=== PATIENT | female | born 1940 | race Caucasian/White ===

== ENCOUNTER 2019-12-19 14:39 | Outpatient (REF) | payer MEDICARE, SELFPAY ==
[2019-12-19 16:32] LABS: Free T4 (Free Thyroxine) 0.99 ng/dL (0.71-1.85)
== END 2019-12-19 14:40 | disposition home or self-care (01) ==
LOC: HO.LAB 14:39
PROVIDERS: PCP Internal Medicine; Visit Provider Internal Medicine Endocrinology, Diabetes & Metabolism
DX: E89.0 Postprocedural hypothyroidism (principal)
CPT/HCPCS: 84439; 84443

== ENCOUNTER → 2019-12-24 11:39 | Outpatient (BNVA) | payer MEDICARE, SELFPAY | PROVIDERS: PCP Internal Medicine; Referring Provider Internal Medicine; Visit Provider Internal Medicine Endocrinology, Diabetes & Metabolism | DX: Z13.89 Encounter for screening for other disorder (principal) | CPT/HCPCS: 99212 ==

== ENCOUNTER 2020-01-24 10:20 | Outpatient (REF) | payer MEDICARE, SELFPAY ==
[2020-01-24 10:47] LABS: MANUAL DIFF FLAG NO
[2020-01-24 11:07] LABS: Basophils Absolute Auto 0.1 X10*3/uL (0.0-0.2); Basophils Percent Auto 1.2 % (0-2); Eosinophils Absolute Auto 0.1 X10*3/uL (0.0-0.4); Eosinophils Percent Auto 2.1 % (0-4); Hematocrit 38.3 % (37-47); Hemoglobin 12.1 g/dl (12.0-16.0); Imm Gran Abs Auto 0.01 X10*3/uL (0.00-0.03); Imm Gran Pct Auto 0.2 % (0.0-0.4); Lymphocytes Absolute Auto 1.6 X10*3/uL (1.2-4.9); Lymphocytes Percent Auto 30.1 % (20-40); Mean Corpuscular HGB Conc 31.6 g/dl (31.0-35.0); Mean Corpuscular Hemoglobin 30.5 pg (27.0-33.0); Mean Corpuscular Volume 96.5 fL (80-98); Mean Platelet Volume 10.4 fL (9.4-12.3); Monocytes Absolute Auto 0.5 X10*3/uL (0.1-1.2); Neutrophils Absolute Auto 2.9 X10*3/uL (2.0-8.3); Neutrophils Percent Auto 56.4 % (45-73); Platelet Count 215 X10*3/uL (160-400); Red Blood Count 3.97 X10*6/uL (4.20-5.50); Red Cell Distribution Width 13.4 % (11.0-16.0); White Blood Count 5.2 X10*3/uL (4.8-10.8)
[2020-01-24 11:27] LABS: Alanine Aminotransferase 14 U/L (0-31); Albumin Level 3.7 g/dL (3.5-5.0); Alkaline Phosphatase 81 U/L (39-117); Anion Gap 12 (12-20); Aspartate Amino Transferase 19 U/L (5-31); Bilirubin Direct 0.2 mg/dL (0.0-0.5); Bilirubin Total 0.2 mg/dL (0.0-1.0); Blood Urea Nitrogen 19 mg/dL (9-16); Calcium 8.7 mg/dL (8.4-10.2); Carbon Dioxide 26 mmol/L (22-29); Chloride 108 mmol/L (96-108); Estimated Glomerular Filt Rate 53; Glucose Random 80 mg/dL (60-115); Iron 71 mcg/dL (30-160); Percent Iron Saturation 29 % (15-50); Potassium 4.2 mmol/l (3.3-5.1); Sodium 142 mmol/L (135-145); Total Iron Binding Capacity 249 mcg/dL (228-428); Total Protein 7.2 g/dL (6.5-8.0); Unsaturated Iron Binding 178 ug/dL
== END 2020-01-24 10:21 | disposition home or self-care (01) ==
LOC: HO.LAB 10:20
PROVIDERS: PCP Internal Medicine; Visit Provider Dermatology
DX: L29.8 Other pruritus (principal); L43.8 Other lichen planus
CPT/HCPCS: 36415; 80048; 80076; 83540; 85025

== ENCOUNTER 2020-01-24 10:45 | Outpatient (REF) | payer MEDICARE, SELFPAY | END 2020-01-24 10:46 | disposition home or self-care (01) | LOC: HO.LAB 10:45 | PROVIDERS: Visit Provider Internal Medicine | DX: Z20.828 Contact with and (suspected) exposure to other viral communicable diseases (principal) | CPT/HCPCS: C9803; U0003 ==

== ENCOUNTER 2020-01-26 08:37 | Outpatient (REF) | payer MEDICARE, SELFPAY ==
--- NOTE | 2020-01-26 | MM_ITS ---
EXAMINATION: MM SCREENING DIGITAL BREAST TOMOSYNTHESIS, BILATERAL CLINICAL INFORMATION: Screening. Asymptomatic. The lifetime risk of breast cancer based on the Tyrer-Cuzick Model is 2%. COMPARISON: Mammography: 01/25/2019, 06/24/2017, 06/22/2016, 04/23/2015 TECHNIQUE: Digital breast tomosynthesis is performed in both the craniocaudal and mediolateral oblique views along with computer-aided detection (CAD). Synthesized 2D images are generated from the tomosynthesis. FINDINGS: The breasts are heterogeneously dense, which may obscure small masses (ACR BI-RADS breast composition Category c). There are no significant masses, abnormal calcifications, or other abnormalities. Parenchymal pattern is similar to prior studies. No developing density. The axilla and skin contours are unremarkable. No significant changes. MM/MM tomosynthesis screening BI IMPRESSION: No mammographic evidence of malignancy. ASSESSMENT: BI-RADS 1: Negative RECOMMENDATION: Routine annual mammography screening. This patient's information was entered into a reminder system with a target due date for their next mammogram.
== END 2020-01-26 08:38 | disposition home or self-care (01) ==
LOC: HO.MAMMO 08:37
PROVIDERS: PCP Internal Medicine; Visit Provider Internal Medicine
DX: Z12.31 Encounter for screening mammogram for malignant neoplasm of breast (principal)
CPT/HCPCS: 77063; 77067

== ENCOUNTER 2020-03-27 10:00 | Outpatient (REF) | payer MEDICARE, SELFPAY | END 2020-03-27 10:01 | disposition home or self-care (01) | LOC: HO.LAB 10:00 | PROVIDERS: Visit Provider Internal Medicine | DX: Z20.822 Contact with and (suspected) exposure to COVID-19 (principal) | CPT/HCPCS: 36415; C9803; U0003; U0005 ==

== ENCOUNTER 2020-05-08 14:07 | Outpatient (REF) | payer MEDICARE, SELFPAY | END 2020-05-08 14:08 | disposition home or self-care (01) | LOC: HO.LNP 14:07 | PROVIDERS: Visit Provider Hospitalist | DX: R30.0 Dysuria (principal) | CPT/HCPCS: 87086 ==

== ENCOUNTER 2020-12-09 10:47 | Outpatient (REF) | payer MEDICARE, SELFPAY ==
[2020-12-09 11:05] LABS: MANUAL DIFF FLAG NO
[2020-12-09 11:15] LABS: Basophils Absolute Auto 0.1 X10*3/uL (0.0-0.2); Eosinophils Absolute Auto 0.1 X10*3/uL (0.0-0.4); Eosinophils Percent Auto 2.3 % (0-4); Hematocrit 37.7 % (37-47); Hemoglobin 12.2 g/dl (12.0-16.0); Imm Gran Abs Auto 0.01 X10*3/uL (0.00-0.03); Imm Gran Pct Auto 0.2 % (0.0-0.4); Lymphocytes Absolute Auto 1.6 X10*3/uL (1.2-4.9); Lymphocytes Percent Auto 25.5 % (20-40); Mean Corpuscular HGB Conc 32.4 g/dl (31.0-35.0); Mean Corpuscular Hemoglobin 31.7 pg (27.0-33.0); Mean Corpuscular Volume 97.9 fL (80-98); Mean Platelet Volume 10.1 fL (9.4-12.3); Monocytes Absolute Auto 0.5 X10*3/uL (0.1-1.2); Neutrophils Absolute Auto 3.9 X10*3/uL (2.0-8.3); Platelet Count 233 X10*3/uL (160-400); Red Blood Count 3.85 X10*6/uL (4.20-5.50); Red Cell Distribution Width 13.3 % (11.0-16.0); White Blood Count 6.1 X10*3/uL (4.8-10.8)
[2020-12-09 12:02] LABS: Alanine Aminotransferase 9 U/L (0-31); Albumin Level 3.9 g/dL (3.5-5.0); Alkaline Phosphatase 85 U/L (39-117); Anion Gap 11 (12-20); Aspartate Amino Transferase 15 U/L (5-31); Bilirubin Total 0.5 mg/dL (0.0-1.0); Blood Urea Nitrogen 14 mg/dL (9-16); Calcium 9.1 mg/dL (8.4-10.2); Carbon Dioxide 25 mmol/L (22-29); Chloride 110 mmol/L (96-108); Cholesterol 226 mg/dL; Estimated Glomerular Filt Rate 50; Glucose Random 91 mg/dL (60-115); HDL Cholesterol 50 mg/dL; LDL Cholesterol Calculated 153 mg/dl; Potassium 4.3 mmol/L (3.3-5.1); Sodium 142 mmol/L (135-145); Total Protein 7.3 g/dL (6.5-8.0); Triglycerides 118 mg/dL
[2020-12-09 12:20] LABS: Folate 7.3 ng/mL (> or = 4.0); Vitamin B12 290 pg/mL (200-900)
[2020-12-09 12:25] LABS: Thyroid Stimulating Hormone 1.91 uIU/mL (0.32-4.0); Vitamin D 25-OH Total 30.8 ng/mL (>30)
== END 2020-12-09 10:48 | disposition home or self-care (01) ==
LOC: HO.LAB 10:47
PROVIDERS: PCP Internal Medicine; Visit Provider Internal Medicine
DX: E78.00 Pure hypercholesterolemia, unspecified (principal)
CPT/HCPCS: 36415; 80053; 80061; 82306; 82607; 82746; 84439; 84443; 85025

== ENCOUNTER 2021-01-15 10:23 | Outpatient (REF) | payer MEDICARE, SELFPAY ==
--- NOTE | 2021-01-15 16:46 | MHC.AU.ANR ---
Adult Audiological Evaluation Date of Visit: 01/15/21 Reason for Appointment: Audiological evaluation due to concern for tinnitus. Ms. Basurto reports that her tinnitus first began about 3-4 years ago and she describes it as a constant buzzing. She finds it most bothersome at night when it's quiet. She feels she overall hears well and doesn't have any significant concerns for her hearing sensitivity. Does patient feel they have a hearing loss?: Unsure Has hearing been tested previously?: Yes Previous Hearing Test Results: Reports that she had a hearing evaluation at [facility] in 2011, at which time she was told she had mild high-frequency hearing loss. Hearing Handicap Inventory: HHIE SCORE: 2 Based on HHIE score, patient has: No perceived hearing handicap Ear History: Family History of Hearing Loss?: Yes: Father, 2 brothers, sister Ear Infections in Childhood: Both Ears History of Ear Wax Buildup: Both Ears Bothersome Tinnitus/Ringing/Noises in Ears: Both Ears Medical History: Medical History: Autoimmune Disease, Measles, Mumps Medical History (Other): Lichen planus, Cataract surgery 2017, left thyroid removed (benign) in 2019, several broken bones Allergies: No known allergies Medication List: Levothyroxine 50 mcg daily, Vitamin D3 1000 mg daily Otoscopy: Right Ear: Unremarkable Left Ear: Unremarkable Hearing Evaluation: Transducer(s) Used: Insert Earphones, Bone Conduction Method: Conventional Audiometry Stimuli Used: Pure Tones Right Ear: Description of Hearing: Normal hearing from 250-2000 Hz, sloping to a mild to moderate sensorineural hearing loss from 7649-9940 Hz. Left Ear: Description of Hearing: Normal hearing from 250-1000 Hz, sloping to a mild to moderate sensorineural hearing loss from 1090-1790 Hz. Speech Recognition Threshold (SRT): Method Used: Monitored Live Voice Stimuli Used: Spondee Words Right Ear: 15 dBHL Left Ear: 15 dBHL Word Discrimination: Method: Recorded Lists Word Lists Used: NU-6 Right Ear: 100% at 55 dBHL Left Ear: 96% a 55 dBHL Recommendations: Audiological re-evaluation in one year. Amplification is not warranted at this time. Discussed tinnitus management strategies and exacerbating factors of tinnitus (stress, nicotine, caffeine, salt intake, etc.). Diagnosis: Primary Diagnosis: H90.3 Bilateral Sensorineural Hearing Loss Secondary Diagnosis: H93.13 Tinnitus, Bilateral Services Performed: Services Performed: Comprehensive Audiological Evaluation (CPT 29713) Signature: Provider: Silverio Vela, CCC-A
== END 2021-01-15 10:24 | disposition home or self-care (01) ==
LOC: HO.SH 10:23
PROVIDERS: Visit Provider Internal Medicine
DX: H90.3 Sensorineural hearing loss, bilateral (principal); H93.13 Tinnitus, bilateral
CPT/HCPCS: 92557

== ENCOUNTER 2021-01-29 16:09 | Outpatient (REF) | payer MEDICARE, SELFPAY ==
--- NOTE | ~2021-01-29 | MM_ITS ---
EXAMINATION: MM SCREENING DIGITAL BREAST TOMOSYNTHESIS, BILATERAL CLINICAL INFORMATION: Screening. Asymptomatic. The lifetime risk of breast cancer based on the Tyrer-Cuzick Model is 2.4%. COMPARISON: Mammography: January 26, 2020 and studies dating back to April 23, 2015 TECHNIQUE: Digital breast tomosynthesis is performed in both the craniocaudal and mediolateral oblique views along with computer-aided detection (CAD). Synthesized 2D images are generated from the tomosynthesis. FINDINGS: The breasts are heterogeneously dense, which may obscure small masses (ACR BI-RADS breast composition Category c). There are no significant masses, abnormal calcifications, or other abnormalities. MM/MM tomosynthesis screening BI IMPRESSION: There are no significant changes from prior study. ASSESSMENT: BI-RADS 1: Negative RECOMMENDATION: Routine annual mammography screening. This patient's information was entered into a reminder system with a target due date for their next mammogram.
== END 2021-01-29 16:10 | disposition home or self-care (01) ==
LOC: HO.MAMMO 16:09
PROVIDERS: Visit Provider Internal Medicine
DX: Z12.31 Encounter for screening mammogram for malignant neoplasm of breast (principal)
CPT/HCPCS: 77063; 77067

== ENCOUNTER 2021-02-02 10:10 | Outpatient (REF) | payer MEDICARE, SELFPAY ==
[2021-02-02 12:03] LABS: COVID-19 Test Negative (Negative); IDNOW Serial# 16C4AD1C
== END 2021-02-02 10:11 | disposition home or self-care (01) ==
LOC: HO.LAB 10:10
PROVIDERS: Visit Provider Internal Medicine
DX: Z20.822 Contact with and (suspected) exposure to COVID-19 (principal)
CPT/HCPCS: 36415; 87635; C9803

== ENCOUNTER 2021-03-19 10:58 | Outpatient (REF) | payer MEDICARE, SELFPAY ==
--- NOTE | ~2021-03-19 | MM_ITS ---
EXAMINATION: BONE DENSITOMETRY CLINICAL INDICATION: Other specified disorders of bone density and structure. COMPARISON: Previous BD dated 12/26/2018 and baseline BD dated 11/30/2010. TECHNIQUE: Using a [employer] DXA System (software version: 13.1) manufactured by [employer] dual-energy x-ray absorptiometry was performed of the lumbar spine and left hip. The images are of good technical quality. Summary results are attached. FINDINGS: AP SPINE L1-L4 (excluding L2 and L3): The data of L1-L4 has been changed to exclude the L2 and L3 vertebral bodies, because degenerative changes at these levels may cause overestimation of lumbar spine density. Current: BMD 0.931 g/cm2, Z-score -0.9, T-score -2.0, osteopenia, 3.6% increase from previous, 4.7% decrease from baseline (<5% change is not significant). Prior: BMD 0.899 g/cm2. Baseline: BMD 0.977 g/cm2. LEFT FEMUR, NECK: Current: BMD 0.781 g/cm2, Z-score -0.3, T-score -1.8, osteopenia. Prior: BMD 0.776 g/cm2. Baseline: BMD 0.845 g/cm2. LEFT FEMUR, TOTAL: Current: BMD 0.841 g/cm2, Z-score 0.0, T-score -1.3, osteopenia, 2.3% decrease from previous, 5.5% decrease from baseline (<5% change is not significant). Prior: BMD 0.861 g/cm2. Baseline: BMD 0.890 g/cm2. IDENTIFIED RISK FACTORS: Osteoporosis, secondary osteoporosis, history of fracture (adult), menopause. HISTORY OF FRACTURE: Wrist. Finger. MEDICATIONS: Vitamin D. MM/XR DEXA axial skeleton IMPRESSION: 1. DIAGNOSIS: Osteopenia based on the lowest T-score value of -2.0 in the lumbar spine applying World Health Organization criteria. 2. 10-YEAR FRACTURE RISK PREDICTION, FRAX: Major osteoporotic fracture (clinical spine, forearm, hip or shoulder) 19.8%. Hip fracture 4.7%. 3. Treatment Recommendations: NOF guidelines recommend consideration for treatment in postmenopausal women and men age 50 and older presenting with the following: -A hip or vertebral (clinical or morphometric) fracture. -T-score less than or equal to -2.5 at the femoral neck or spine after appropriate evaluation to exclude secondary causes. -Low bone mass at the hip or spine and a 10-year fracture probability by FRAX of greater than or equal to 3% for hip fracture or greater than or equal to 20% for major osteoporotic fracture based on the [place] adapted WHO algorithm. 4. Other Recommendations: All treatment decisions require clinical judgment and consideration of individual patient factors, including patient preferences, comorbidities, previous drug use, risk factors not captured in the FRAX model (e.g. frailty, falls, vitamin D deficiency, increased bone turnover, interval significant decline in bone density) and possible under or overestimation of fracture risk by FRAX. Additional medical evaluation for secondary cause of low bone mineral density may be appropriate. FUTURE SCAN RECOMMENDATION: People with diagnosed cases of osteoporosis or at high risk for fracture should have regular bone mineral density tests. For patients eligible for Medicare, routine testing is allowed once every 2 years. The testing frequency can be increased to one year for patients who have rapidly progressing disease, those who are receiving or discontinuing medical therapy to restore bone mass, or have additional risk factors.
== END 2021-03-19 10:59 | disposition home or self-care (01) ==
LOC: HO.MAMMO 10:58
PROVIDERS: Visit Provider Internal Medicine
DX: Z13.820 Encounter for screening for osteoporosis (principal); M85.80 Other specified disorders of bone density and structure, unspecified site; M81.0 Age-related osteoporosis without current pathological fracture; Z78.0 Asymptomatic menopausal state; Z79.899 Other long term (current) drug therapy
CPT/HCPCS: 77080

== ENCOUNTER 2021-07-07 09:47 | Outpatient (REF) | payer MEDICARE, SELFPAY ==
[2021-07-07 11:17] LABS: Alanine Aminotransferase 19 U/L (0-31); Albumin Level 3.7 g/dL (3.5-5.0); Alkaline Phosphatase 81 U/L (39-117); Anion Gap 11 (12-20); Aspartate Amino Transferase 16 U/L (5-31); Bilirubin Total 0.5 mg/dL (0.0-1.0); Blood Urea Nitrogen 14 mg/dL (9-16); Calcium 9.3 mg/dL (8.4-10.2); Carbon Dioxide 27 mmol/L (22-29); Chloride 106 mmol/L (96-108); Cholesterol 245 mg/dL; Estimated Glomerular Filt Rate 57; Glucose Random 91 mg/dL (60-115); HDL Cholesterol 47 mg/dL; LDL Cholesterol Calculated 165 mg/dl; Potassium 4.7 mmol/L (3.3-5.1); Sodium 139 mmol/L (135-145); Total Protein 7.2 g/dL (6.5-8.0); Triglycerides 166 mg/dL
[2021-07-07 11:26] LABS: Free T4 (Free Thyroxine) 0.91 ng/dL (0.71-1.85); Thyroid Stimulating Hormone 2.42 uIU/mL (0.32-4.0)
== END 2021-07-07 09:48 | disposition home or self-care (01) ==
LOC: HO.LAB 09:47
PROVIDERS: PCP Internal Medicine; Visit Provider Internal Medicine
DX: E78.00 Pure hypercholesterolemia, unspecified (principal); E04.2 Nontoxic multinodular goiter; E89.0 Postprocedural hypothyroidism
CPT/HCPCS: 36415; 80053; 80061; 84439; 84443

== ENCOUNTER → 2021-07-14 07:55 | Outpatient (BNVA) | payer MEDICARE, SELFPAY | PROVIDERS: PCP Internal Medicine; Visit Provider Internal Medicine Endocrinology, Diabetes & Metabolism | DX: E04.2 Nontoxic multinodular goiter (principal); E89.0 Postprocedural hypothyroidism | CPT/HCPCS: 99212 ==

== ENCOUNTER 2021-09-29 11:21 | Outpatient (REF) | payer MEDICARE, SELFPAY ==
--- NOTE | ~2021-09-29 | US_ITS ---
EXAMINATION: US THYROID CLINICAL INFORMATION: Nontoxic multinodular goiter. COMPARISON: Thyroid ultrasound 02/23/2018 and 03/01/2017. Ultrasound-guided thyroid biopsy 09/30/2016. TECHNIQUE: Linear transducer grayscale and color Doppler examination with attention to the region of the thyroid. FINDINGS: SIZE: Measurements of the solitary right lobe and nodules are given in sagittal, anteroposterior and transverse dimensions respectively. Right Thyroid Lobe: 4.6 x 1.4 x 1.8 cm, volume 6.1 mL. Previously 4.7 x 1.7 x 1.5 cm, volume 6.1 mL. Parenchyma: The gland echotexture is homogeneous. Thyroid vascularity is increased. Left Thyroid Lobe: Surgically absent. Isthmus: Surgically absent. Estimated total number of nodules greater than or equal to 1 cm: 2. [employer] nodules are described as follows: 1. Location: Right mid pole. Size: 1.0 x 0.7 x 0.9 cm, volume 0.3 mL. Previously: 1.1 x 0.7 x 0.8 cm, volume 0.3 mL. Nodule characteristics: Composition: Solid/almost completely solid (2). Echogenicity: Hypoechoic (2). Shape: Not taller than wide (0). Margins: Smooth (0). Echogenic Foci: None (0). ACR TI-RADS total points: 4 ACR TI-RADS category: 4 Significant change in size (>/= 20% in 2 dimensions and minimal increase of 2 mm or 50% or greater increase in volume): None Change in features: None Change in ACR TI-RADS risk category: Not applicable 2. Location: Right mid pole/medial. Size: 0.8 x 0.3 x 0.7 cm, volume 0.1 mL. Previously: 0.8 x 0.6 x 0.7 cm, volume 0.2 mL. Nodule characteristics: Composition: Cystic(0). ACR TI-RADS total points: 0 ACR TI-RADS category: 1 Significant change in size (>/= 20% in 2 dimensions and minimal increase of 2 mm or 50% or greater increase in volume): 9 Change in features: None Change in ACR TI-RADS risk category: Not applicable. 3. Location: Right upper/mid pole. Size: 1.6 x 0.5 x 1.0 cm, volume 0.4 mL. Previously: 0.9 x 0.6 x 0.8 cm, volume 0.23 mL. Nodule characteristics: Composition: Mixed cystic and solid (1). Echogenicity: Cannot be determined (1). Shape: Not taller than wide (0). Margins: Ill-defined (0). Echogenic Foci: None (0). ACR TI-RADS total points: 2 ACR TI-RADS category: 2 Significant change in size (>/= 20% in 2 dimensions and minimal increase of 2 mm or 50% or greater increase in volume): None Change in features: None Change in ACR TI-RADS risk category: Not applicable NODES: No lymphadenopathy is seen in the tissue surrounding the thyroid gland. US/US thyroid IMPRESSION: Stable right thyroid lobe and thyroid nodules. No suspicious nodules. Previous left thyroidectomy. ACR TI-RADS RECOMMENDATION REFERENCE: Ultrasound-guided fine-needle aspiration, followup ultrasound, no further follow up. * TR1 (0 point) and TR 2 (2 points): No FNA or follow up * TR3 (3 points): FNA if more than or equal to 2.5 cm in maximum dimension, followup ultrasound in 1, 3 and 5 years if 1.5 to 2.4 cm in maximum dimension. * TR4 (4-6 points): FNA if more than or equal to 1.5 cm in maximum dimension, followup ultrasound in 1, 2, 3 and 5 years if 1 to 1.4 cm in maximum dimension. * TR5 (more than or equal to 7 points): FNA if more than or equal to 1 cm in maximum dimension, followup ultrasound every year for 5 years if 0.5 to 0.9 cm in maximum dimension. * TR3, TR4 or TR5 nodules that are below the size threshold for follow up receive no follow up.
[2021-09-29 12:20] LABS: MANUAL DIFF FLAG NO
[2021-09-29 12:43] LABS: Basophils Absolute Auto 0.1 X10*3/uL (0.0-0.2); Basophils Percent Auto 1.5 % (0-2); Eosinophils Absolute Auto 0.1 X10*3/uL (0.0-0.4); Eosinophils Percent Auto 2.4 % (0-4); Hematocrit 38.8 % (37.0-47.0); Hemoglobin 12.5 g/dl (12.0-16.0); Imm Gran Abs Auto 0.01 X10*3/uL (0.00-0.03); Imm Gran Pct Auto 0.2 % (0.0-0.4); Lymphocytes Absolute Auto 1.6 X10*3/uL (1.2-4.9); Lymphocytes Percent Auto 29.4 % (20-40); Mean Corpuscular HGB Conc 32.2 g/dl (31.0-35.0); Mean Corpuscular Volume 96.3 fL (80.0-98.0); Mean Platelet Volume 10.1 fL (9.4-12.3); Monocytes Absolute Auto 0.5 X10*3/uL (0.1-1.2); Monocytes Percent Auto 9.4 % (2-11); Neutrophils Absolute Auto 3.1 x10*3/uL (2.0-8.3); Neutrophils Percent Auto 57.1 % (45-73); Platelet Count 216 X10*3/uL (160-400); Red Blood Count 4.03 X10*6/uL (4.20-5.50); White Blood Count 5.3 X10*3/uL (4.8-10.8)
[2021-09-29 13:37] LABS: Alanine Aminotransferase 13 U/L (0-31); Albumin Level 3.8 g/dL (3.5-5.0); Alkaline Phosphatase 73 U/L (39-117); Anion Gap 14 (12-20); Aspartate Amino Transferase 18 U/L (5-31); Bilirubin Total 0.4 mg/dL (0.0-1.0); Blood Urea Nitrogen 14 mg/dL (9-16); Calcium 8.8 mg/dL (8.4-10.2); Carbon Dioxide 25 mmol/L (22-29); Chloride 108 mmol/L (96-108); Cholesterol 227 mg/dL; Estimated Glomerular Filt Rate 55; Glucose Random 88 mg/dL (60-115); HDL Cholesterol 49 mg/dL; LDL Cholesterol Calculated 155 mg/dl; Potassium 4.6 mmol/L (3.3-5.1); Sodium 142 mmol/L (135-145); Total Protein 7.2 g/dL (6.5-8.0); Triglycerides 116 mg/dL
[2021-09-29 13:52] LABS: Free T4 (Free Thyroxine) 0.97 ng/dL (0.71-1.85); Thyroid Stimulating Hormone 1.56 uIU/mL (0.32-4.0); Vitamin D 25-OH Total 37.3 ng/mL (>30)
[2021-09-29 14:29] LABS: Folate 6.4 ng/mL (> or = 4.0); Vitamin B12 264 pg/mL (200-900)
== END 2021-09-29 11:22 | disposition home or self-care (01) ==
LOC: HO.US 11:21
PROVIDERS: PCP Internal Medicine; Visit Provider Internal Medicine Endocrinology, Diabetes & Metabolism
DX: E89.0 Postprocedural hypothyroidism (principal); E78.00 Pure hypercholesterolemia, unspecified; E04.2 Nontoxic multinodular goiter; M81.0 Age-related osteoporosis without current pathological fracture
CPT/HCPCS: 36415; 76536; 80053; 80061; 82306; 82607; 82746; 84439; 84443; 85025

== ENCOUNTER 2022-02-01 12:20 | Outpatient (REF) | payer MEDICARE, SELFPAY ==
--- NOTE | ~2022-02-01 | MM_ITS ---
EXAMINATION: MM SCREENING DIGITAL BREAST TOMOSYNTHESIS, BILATERAL CLINICAL INFORMATION: Screening. Asymptomatic. The lifetime risk of breast cancer based on the Tyrer-Cuzick Model is 2%. COMPARISON: Mammography: 01/30/2020, 01/26/2020, 12/26/2018 TECHNIQUE: Digital breast tomosynthesis is performed in both the craniocaudal and mediolateral oblique views along with computer-aided detection (CAD). Synthesized 2D images are generated from the tomosynthesis. FINDINGS: The breasts are heterogeneously dense, which may obscure small masses (ACR BI-RADS breast composition Category c). There are no significant masses, abnormal calcifications, or other abnormalities. Parenchymal pattern is similar to prior studies. There is no developing density or architectural abnormality. The axilla and skin contours are unremarkable. No significant changes. MM/MM tomosynthesis screening BI IMPRESSION: No mammographic evidence of malignancy. ASSESSMENT: BI-RADS 1: Negative RECOMMENDATION: Routine annual mammography screening. This patient's information was entered into a reminder system with a target due date for their next mammogram.
== END 2022-02-01 12:21 | disposition home or self-care (01) ==
LOC: HO.MAMMO 12:20
PROVIDERS: Visit Provider Internal Medicine
DX: Z12.31 Encounter for screening mammogram for malignant neoplasm of breast (principal)
CPT/HCPCS: 77063; 77067

== ENCOUNTER 2022-03-04 09:22 | Outpatient (REF) | payer MEDICARE, SELFPAY ==
[2022-03-04 09:45] LABS: MANUAL DIFF FLAG NO
[2022-03-04 10:40] LABS: Basophils Absolute Auto 0.1 X10*3/uL (0.0-0.2); Basophils Percent Auto 1.3 % (0-2); Eosinophils Absolute Auto 0.1 X10*3/uL (0.0-0.4); Eosinophils Percent Auto 2.8 % (0-4); Hematocrit 37.3 % (37.0-47.0); Hemoglobin 12.1 g/dl (12.0-16.0); Imm Gran Abs Auto 0.02 X10*3/uL (0.00-0.03); Imm Gran Pct Auto 0.4 % (0.0-0.4); Lymphocytes Absolute Auto 1.6 X10*3/uL (1.2-4.9); Lymphocytes Percent Auto 34.2 % (20-40); Mean Corpuscular HGB Conc 32.4 g/dl (31.0-35.0); Mean Corpuscular Hemoglobin 31.9 pg (27.0-33.0); Mean Corpuscular Volume 98.4 fL (80.0-98.0); Mean Platelet Volume 10.9 fL (9.4-12.3); Monocytes Absolute Auto 0.5 X10*3/uL (0.1-1.2); Monocytes Percent Auto 10.2 % (2-11); Neutrophils Absolute Auto 2.4 x10*3/uL (2.0-8.3); Neutrophils Percent Auto 51.1 % (45-73); Platelet Count 212 X10*3/uL (160-400); Red Blood Count 3.79 X10*6/uL (4.20-5.50); Red Cell Distribution Width 13.6 % (11.0-16.0); White Blood Count 4.7 X10*3/uL (4.8-10.8)
[2022-03-04 11:22] LABS: Alanine Aminotransferase 11 U/L (0-31); Albumin Level 3.7 g/dL (3.5-5.0); Alkaline Phosphatase 83 U/L (39-117); Anion Gap 12 (12-20); Aspartate Amino Transferase 15 U/L (5-31); Bilirubin Total 0.6 mg/dL (0.0-1.0); Blood Urea Nitrogen 14 mg/dL (9-16); Calcium 8.9 mg/dL (8.4-10.2); Carbon Dioxide 26 mmol/L (22-29); Chloride 106 mmol/L (96-108); Cholesterol 223 mg/dL; Estimated Glomerular Filt Rate > 60; Glucose Random 86 mg/dL (60-115); HDL Cholesterol 48 mg/dL; LDL Cholesterol Calculated 148 mg/dl; Sodium 140 mmol/L (135-145); Triglycerides 138 mg/dL
[2022-03-04 11:45] LABS: Folate 7.6 ng/mL (> or = 4.0); Vitamin B12 286 pg/mL (200-900)
[2022-03-04 11:46] LABS: Free T4 (Free Thyroxine) 1.07 ng/dL (0.71-1.85); Thyroid Stimulating Hormone 2.27 uIU/mL (0.32-4.0); Vitamin D 25-OH Total 41.1 ng/mL (>30)
== END 2022-03-04 09:23 | disposition home or self-care (01) ==
LOC: HO.LAB 09:22
PROVIDERS: PCP Internal Medicine; Visit Provider Internal Medicine
DX: E78.00 Pure hypercholesterolemia, unspecified (principal)
CPT/HCPCS: 36415; 80053; 80061; 82306; 82607; 82746; 84439; 84443; 85025

== ENCOUNTER 2022-03-12 08:52 | Outpatient (REF) | payer MEDICARE, SELFPAY | END 2022-03-12 08:53 | disposition home or self-care (01) | LOC: HO.SH 08:52 | PROVIDERS: Visit Provider Internal Medicine | DX: H90.3 Sensorineural hearing loss, bilateral (principal); H93.13 Tinnitus, bilateral | CPT/HCPCS: 92557; 92567 ==

== ENCOUNTER 2022-03-12 11:53 | Outpatient (REF) | payer MEDICARE, SELFPAY ==
--- NOTE | ~2022-03-12 | US_ITS ---
EXAMINATION: US SCREENING ULTRASOUND BREAST, BILATERAL CLINICAL INFORMATION: Dense breasts on mammography. Screening ultrasound. Tyrer-Cuzick Score 2%. COMPARISON: Mammography 02/01/2022 TECHNIQUE: Ultrasound is performed using grayscale imaging and color Doppler. Imaging is performed to include the four quadrants and retroareolar region. Both breasts are imaged. FINDINGS: Right breast: There is no suspicious finding by ultrasound. There is no cystic or solid mass or focal architectural abnormality. Left breast: There is no suspicious finding by ultrasound. There is no cystic or solid mass or focal architectural abnormality. US/US breast LT complete IMPRESSION: -Normal study. ASSESSMENT: BI-RADS 1: Negative RECOMMENDATION: Routine annual mammography screening. This patient's information was entered into a reminder system with a target due date for their next mammogram.
--- NOTE | ~2022-03-12 | US_ITS ---
EXAMINATION: US SCREENING ULTRASOUND BREAST, BILATERAL CLINICAL INFORMATION: Dense breasts on mammography. Screening ultrasound. Tyrer-Cuzick Score 2%. COMPARISON: Mammography 02/01/2022 TECHNIQUE: Ultrasound is performed using grayscale imaging and color Doppler. Imaging is performed to include the four quadrants and retroareolar region. Both breasts are imaged. FINDINGS: Right breast: There is no suspicious finding by ultrasound. There is no cystic or solid mass or focal architectural abnormality. Left breast: There is no suspicious finding by ultrasound. There is no cystic or solid mass or focal architectural abnormality. US/US breast RT complete IMPRESSION: -Normal study. ASSESSMENT: BI-RADS 1: Negative RECOMMENDATION: Routine annual mammography screening. This patient's information was entered into a reminder system with a target due date for their next mammogram.
== END 2022-03-12 11:54 | disposition home or self-care (01) ==
LOC: HO.MAMMO 11:53
PROVIDERS: PCP Internal Medicine; Visit Provider Internal Medicine
DX: R92.2 Inconclusive mammogram (principal)
CPT/HCPCS: 76641; 76642

== ENCOUNTER 2022-09-02 10:56 | Outpatient (AMB) | payer MEDICARE, SELFPAY ==
[2022-09-02 11:14] VITALS: BP 124/74; PULSE 80; O2SAT 97; BMI 32.1
--- NOTE | 2022-09-02 11:14 | MHC.PC.OV ---
Vital Signs 09/02/22 11:14 Height 5 ft 5.5 in Weight 196 lb BMI 32.1 BP 124/74 Blood Pressure Location Lt brachial Position Sitting Pulse 80 Pulse Source Pulse Oximeter Pulse Oximetry (%) 97 Oxygen Delivery Method Room Air Intake Visit Reasons: hypothyroid Allergies No Known Allergies [No Known Allergies*] Allergy (Verified 09/02/22 11:14) Medication List - Last Reconciled 09/02/22 by Arely Ivory MD acetaminophen 325 - 650 mg (1 - 2 x 325 mg) PO Q4-6H PRN cholecalciferol (vitamin D3) 25 mcg PO DAILY 90 days levothyroxine 50 mcg PO QAM Tobacco use date assessed: 03/05/22 Fall risk assessment: No Falls in past year Last assessed Fall Risk: 09/02/22 Dental Screening Dental Screen Date: 09/02/22 Did you have a dental visit in the last 12 months?: Yes Did you have a dental problem in the last 6 months where you did not have access to dental care?: No Was dental information given to patient?: Patient has dentist HPI hypothyroid HPI Details 81-year-old obese female with hypercholesterolemia osteoporosis nontoxic multinodular goiter with postsurgical hypothyroidism and generalized anxiety disorder coming in for follow-up. February last seen. [facility] Medical History Hypercholesterolemia Insomnia Irritable bowel syndrome Mitral valve prolapse Non-toxic multinodular goiter Obesity (BMI 30-39.9) Osteoporosis Post-surgical hypothyroidism Right hand fracture Right renal mass Surgical History History of excision of mass History of hand surgery History of kidney surgery History of trigger finger Hx of cataract removal with insertion of prosthetic lens S/P thyroid surgery Family History Father Prostate cancer Colon cancer Mother Oral cancer Smoker Sister Ovarian cancer Brother Prostate cancer Social History Housing: House Alcohol intake: never Patient Tobacco Use Status: Former Tobacco user Tobacco use type: Cigarette Years Smoked: stopped 25 years old e-Cigarette/Vaping Use: Never Used Second Hand Smoke Exposure: Yes service: No Current occupational status: retired Cognitive needs: No Hearing needs: No Vision needs: Yes Questionnaire PHQ-9 Over the last 2 weeks, how often have you been bothered by any of the following problems? 1. Little interest or pleasure in doing things: more than half the days 2. Feeling down, depressed, or hopeless: more than half the days 3. Trouble falling or staying asleep, or sleeping too much: more than half the days 4. Feeling tired or having little energy: more than half the days 5. Poor appetite or overeating: several days 6. Feeling bad about yourself - or that you are a failure or have let yourself or your family down: several days 7. Trouble concentrating on things, such as reading the newspaper or watching television: several days 8. Moving or speaking so slowly that other people could have noticed. Or the opposite - being so fidgety or restless that you have been moving around a lot more than usual: several days 9. Thoughts that you would be better off or of hurting yourself in some way: several days Total score: 13 Depression Screening Interpretation: Negative Source: Developed by Drs. Lambert Marie, Osiris Coleman, Jonathan Sin and colleagues, with an educational brendon from [employer] ?. Thrive Questionnaire Date Thrive assessed: 03/05/22 AUDIT C Alcohol Use Questionnaire (AUDIT-C) 1. How often do you have a drink containing alcohol?: Never 3. How often do you have six or more drinks on one occasion?: Never Total Score: 0 Score Reviewed/Action Taken: No REJI-7 AMB Questionnaire REJI-7 Date REJI - 7 assessed: 03/05/22 Source: Developed by Drs. Lambert Marie, Jonathan Patton and colleagues, with an educational brendon from [employer] ?. Physical exam (Primary Care) Vital Signs: Last Vital Signs Pulse 80 09/02/22 11:14 BP 124/74 09/02/22 11:14 Pulse Ox 97 09/02/22 11:14 Oxygen Delivery Method Room Air 09/02/22 11:14 BMI result Body Mass Index 32.1 Tobacco/Smoking Status: Tobacco use Status Tobacco use date assessed 03/05/22 09/02/22 11:18 Patient Tobacco Use Status Former Tobacco user 09/02/22 11:18 Tobacco use type Cigarette 09/02/22 11:18 e-Cigarette/Vaping Use Never Used 09/02/22 11:18 PHQ-9: PHQ-9 Score PHQ-9: Total score 13 09/02/22 11:51 Depression Screening Interpretation: Negative Thrive Assessment: Date of Thrive Assessment Date Thrive assessed 03/05/22 09/02/22 11:18 Const General: alert; No acute distress Eyes Conjunctivae: conjunctivae normal Resp Auscultation: clear to auscultation bilaterally Cardio Rate: regular rate Rhythm: regular rhythm GI Inspection: Yes normal to inspection Extrem General: Yes normal to inspection and No edema Assessment and Plan Assessment & Plan (1) Obesity (BMI 30-39.9): Comment: Patient has been advised diet and exercise Code(s): E66.9 - Obesity, unspecified Plan: Diet and exercise (2) Hypercholesterolemia: Comment: Avoid fried foods, chicken skin, eggs, butter margarine, pastries and meat. Be it pork or beef they have a lot of cholesterol Code(s): E78.00 - Pure hypercholesterolemia, unspecified Plan: Avoid fried foods, chicken skin, eggs, butter margarine, pastries and meat. Be it pork or beef they have a lot of cholesterol LDL goal of less than 130 and triglyceride of less than 150 (3) Post-surgical hypothyroidism: Comment: Continue with present medication. Patient follows up with endocrinology. Code(s): E89.0 - Postprocedural hypothyroidism Plan: Continue with thyroid Medicaid (4) Osteoporosis: Comment: 12/2018March 2021 Code(s): M81.0 - Age-related osteoporosis without current pathological fracture Plan: Up-to-date with bone density discussed about calcium and vitamin-D (5) Visual changes: Code(s): H53.9 - Unspecified visual disturbance (6) Generalized anxiety disorder: Code(s): F41.1 - Generalized anxiety disorder Plan: had counsaeeling but did not work Orders: Orders Vitamin B12 and Folate Today E78.00 - Pure hypercholesterolemia, unspecified Comprehensive Met. Panel Today E78.00 - Pure hypercholesterolemia, unspecified Lipid Panel Today E78.00 - Pure hypercholesterolemia, unspecified Free T4 (Free Thyroxine) Today E78.00 - Pure hypercholesterolemia, unspecified Thyroid Stimulating Hormone Today E78.00 - Pure hypercholesterolemia, unspecified Vitamin D 25-OH Total Today E78.00 - Pure hypercholesterolemia, unspecified Complete Blood Count Auto Diff Today E78.00 - Pure hypercholesterolemia, unspecified Referrals Ophthalmology Referral H53.9 - Unspecified visual disturbance Medications: Discontinued ibuprofen Discontinued Reason: Ancillary Entered New Order 400 mg PO Q6H PRN 30 tabs 0RF pain Coding Level of Care Code Est Pt Level 4 (54247) Diagnoses Obesity (BMI 30-39.9) E66.9 Hypercholesterolemia E78.00 Post-surgical hypothyroidism E89.0 Osteoporosis M81.0 Visual changes H53.9 Generalized anxiety disorder F41.1 Additional Codes PHQ-9 - 66878 - PHQ-9 Billing: Y ([id number])
== END 2022-09-02 12:13 | disposition home or self-care (01) ==
PROVIDERS: Visit Provider Internal Medicine
DX: E78.00 Pure hypercholesterolemia, unspecified (principal); E66.9 Obesity, unspecified; Z68.32 Body mass index [BMI] 32.0-32.9, adult; E89.0 Postprocedural hypothyroidism; M81.0 Age-related osteoporosis without current pathological fracture; H53.9 Unspecified visual disturbance; F41.1 Generalized anxiety disorder
CPT/HCPCS: 99214

== ENCOUNTER 2022-09-13 08:21 | Outpatient (REF) | payer MEDICARE, SELFPAY ==
[2022-09-13 08:34] LABS: MANUAL DIFF FLAG NO
[2022-09-13 08:57] LABS: Basophils Absolute Auto 0.1 X10*3/uL (0.0-0.2); Basophils Percent Auto 0.9 % (0-2); Eosinophils Absolute Auto 0.1 X10*3/uL (0.0-0.4); Eosinophils Percent Auto 1.3 % (0-4); Hematocrit 38.5 % (37.0-47.0); Hemoglobin 12.3 g/dl (12.0-16.0); Imm Gran Abs Auto 0.01 X10*3/uL (0.00-0.03); Imm Gran Pct Auto 0.2 % (0.0-0.4); Lymphocytes Absolute Auto 2.1 X10*3/uL (1.2-4.9); Lymphocytes Percent Auto 38.2 % (20-40); Mean Corpuscular HGB Conc 31.9 g/dl (31.0-35.0); Mean Corpuscular Hemoglobin 32.3 pg (27.0-33.0); Mean Platelet Volume 10.7 fL (9.4-12.3); Monocytes Absolute Auto 0.5 X10*3/uL (0.1-1.2); Monocytes Percent Auto 9.3 % (2-11); Neutrophils Absolute Auto 2.8 x10*3/uL (2.0-8.3); Neutrophils Percent Auto 50.1 % (45-73); Platelet Count 226 X10*3/uL (160-400); Red Blood Count 3.81 X10*6/uL (4.20-5.50); White Blood Count 5.5 X10*3/uL (4.8-10.8)
[2022-09-13 09:33] LABS: Alanine Aminotransferase 13 U/L (0-31); Albumin Level 3.6 g/dL (3.5-5.0); Alkaline Phosphatase 77 U/L (39-117); Anion Gap 12 (12-20); Aspartate Amino Transferase 17 U/L (5-31); Bilirubin Total 0.4 mg/dL (0.0-1.0); Blood Urea Nitrogen 11 mg/dL (9-16); Carbon Dioxide 24 mmol/L (22-29); Chloride 110 mmol/L (96-108); Cholesterol 203 mg/dL; Estimated Glomerular Filt Rate 57; Glucose Random 85 mg/dL (60-115); HDL Cholesterol 47 mg/dL; LDL Cholesterol Calculated 129 mg/dl; Sodium 142 mmol/L (135-145); Total Protein 7.3 g/dL (6.5-8.0); Triglycerides 139 mg/dL
[2022-09-13 09:53] LABS: Free T4 (Free Thyroxine) 0.82 ng/dL (0.71-1.85); Vitamin D 25-OH Total 40.6 ng/mL (>30)
[2022-09-13 09:56] LABS: Folate 6.1 ng/mL (> or = 4.0); Vitamin B12 380 pg/mL (200-900)
== END 2022-09-13 08:22 | disposition home or self-care (01) ==
LOC: HO.LAB 08:21
PROVIDERS: PCP Internal Medicine; Visit Provider Internal Medicine
DX: E78.00 Pure hypercholesterolemia, unspecified (principal); M81.0 Age-related osteoporosis without current pathological fracture
CPT/HCPCS: 36415; 80053; 80061; 82306; 82607; 82746; 84439; 84443; 85025

== ENCOUNTER 2022-12-15 13:35 | Outpatient (AMB) | payer MEDICARE, SELFPAY ==
--- NOTE | 2022-12-15 13:36 | MHC.OFFWIV ---
Intake Vital Signs 12/15/22 13:44 Height 5 ft 5.5 in Weight 194 lb BMI 31.8 BP 118/76 Blood Pressure Location Rt brachial Position Sitting Pulse 94 Pulse Source Pulse Oximeter Temp 96.7 F L Temp Source Temporal Artery Scan Pulse Oximetry (%) 95 Oxygen Delivery Method Room Air Intake Visit Reasons: EP cough/4 weeks Intake Note: Pt is here c/o cough for the last four weeks. Patient Tobacco Use Status: Former Tobacco user Allergies No Known Allergies [No Known Allergies*] Allergy (Verified 12/15/22 13:54) Do you need a note to return to daycare/school/sports/work: No HPI HPI Comments History of Present Illness Details 81-year-old female presents for productive cough x4 weeks. she denies fevers or chills abdominal pain nausea vomiting. Cough mildly productive with initially clearer now yellow sputum. [facility] Medical History Hypercholesterolemia Insomnia Irritable bowel syndrome Mitral valve prolapse Non-toxic multinodular goiter Obesity (BMI 30-39.9) Osteoporosis Post-surgical hypothyroidism Right hand fracture Right renal mass Surgical History History of excision of mass History of hand surgery History of kidney surgery History of trigger finger Hx of cataract removal with insertion of prosthetic lens S/P thyroid surgery Family History Father Prostate cancer Colon cancer Mother Oral cancer Smoker Sister Ovarian cancer Brother Prostate cancer Social History Housing: House Alcohol intake: never Patient Tobacco Use Status: Former Tobacco user Tobacco use type: Cigarette Years Smoked: stopped 25 years old e-Cigarette/Vaping Use: Never Used Second Hand Smoke Exposure: Yes service: No Current occupational status: retired Cognitive needs: No Hearing needs: No Vision needs: Yes Review of Systems Resp Reports chest congestion and Reports cough Physical Exam Vital Signs: Last Vital Signs Temp 96.7 F L 12/15/22 13:44 Pulse 94 12/15/22 13:44 BP 118/76 12/15/22 13:44 Pulse Ox 95 12/15/22 13:44 Oxygen Delivery Method Room Air 12/15/22 13:44 BMI result Body Mass Index 31.8 Const General: cooperative, healthy appearing, no acute distress and alert Orientation/consciousness: patient oriented x3 Limitations: no limitations HEENT Head: Yes normal to inspection Ears: hearing grossly normal bilaterally General nose exam: Normal external nose present Resp Other: crackles in right lower base Effort & Inspection: normal respiratory effort and able to speak in complete sentences Cardio Rate: regular rate Skin General skin exam: no rashes or lesions noted Neuro General: patient oriented x3 Extrem General: Yes normal to inspection Assessment & Plan Assessment & Plan (1) Bronchitis: Code(s): J40 - Bronchitis, not specified as acute or chronic Plan VSS. exam the heart is unremarkable noted above. Exam notable for crackles in the right lower base. of suspicion is viral illness versus pleural effusion versus pneumonia will shoot chest x-ray Xray w/o acute findings Discharge instructions, follow up and treatment are discussed with patient in my usual fashion. Alternatives in treatment are also discussed. The patient will return for worsening symptoms or as needed. Advised that any labs/imaging ordered will be followed up on and contact made if further treatment needed. Counseled that patient's condition may require further evaluation and/or treatment. Symptoms of concern for worsening disorder discussed in detail in my customary manner. Patient does verbalize understanding of the plan, there are no apparent barriers to communication. The patient is given the opportunity to ask questions and have them answered to his/her satisfaction Orders: Orders XR chest 2V Today R05.9 - Cough, unspecified Medications: New azithromycin For 250 mg dose pack: take 500 mg today (day 1), then 250 mg for 4 days (days 2-5) PO 6 tabs 0RF dextromethorphan HBr 15 mg PO Q8H PRN 10 caps 0RF cough Coding Level of Care Code Est Pt Level 4 (67702) Diagnoses Bronchitis J40
[2022-12-15 13:44] VITALS: BP 118/76; PULSE 94; TEMP 35.9; O2SAT 95; BMI 31.8
== END 2022-12-15 14:28 | disposition home or self-care (01) ==
PROVIDERS: PCP Internal Medicine; Visit Provider Physician Assistant
DX: J40 Bronchitis, not specified as acute or chronic (principal)
CPT/HCPCS: 99214

== ENCOUNTER 2022-12-15 14:02 | Outpatient (REF) | payer MEDICARE, SELFPAY ==
--- NOTE | ~2022-12-15 | XR_ITS ---
EXAMINATION: XR CHEST CLINICAL INFORMATION: Cough COMPARISON: TECHNIQUE: 2 views of the chest were obtained. FINDINGS: No significant abnormality is noted involving the heart, lungs, mediastinum, bony thorax or soft tissues. XR/XR chest 2V IMPRESSION: Unremarkable examination.
== END 2022-12-15 14:03 | disposition home or self-care (01) ==
LOC: HO.HMGCX 14:02
PROVIDERS: PCP Internal Medicine; Visit Provider Physician Assistant
DX: R05.9 Cough, unspecified (principal)
CPT/HCPCS: 71046

== ENCOUNTER 2023-02-03 12:30 | Outpatient (REF) | payer MEDICARE, SELFPAY | END 2023-02-03 12:31 | disposition home or self-care (01) | LOC: HO.MAMMO 12:30 | PROVIDERS: PCP Internal Medicine; Visit Provider Internal Medicine | DX: Z12.31 Encounter for screening mammogram for malignant neoplasm of breast (principal) | CPT/HCPCS: 77063; 77067 ==

== ENCOUNTER → 2023-02-03 12:30 | Outpatient (BNV) | payer MEDICARE, SELFPAY | PROVIDERS: PCP Internal Medicine; Visit Provider Radiology Diagnostic Radiology | DX: Z12.31 Encounter for screening mammogram for malignant neoplasm of breast (principal) | CPT/HCPCS: 77063; 77067 ==

== ENCOUNTER 2023-03-16 11:14 | Outpatient (AMB) | payer MEDICARE, SELFPAY ==
[2023-03-16 11:16] VITALS: BP 118/70; PULSE 85; O2SAT 98; BMI 31.7
--- NOTE | 2023-03-16 11:16 | A.OFFPC_ITS ---
Vital Signs 03/16/23 11:16 Height 5 ft 5.08 in Weight 191 lb BMI 31.7 BP 118/70 Blood Pressure Location Lt brachial Position Sitting Pulse 85 Pulse Source Pulse Oximeter Pulse Oximetry (%) 98 Oxygen Delivery Method Room Air Intake Visit Reasons: Annual Exam Intake Note: Patient is here today for a physical. 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 Allergies No Known Allergies [No Known Allergies*] Allergy (Verified 03/16/23 11:16) Medication List - Last Reconciled 03/16/23 by Arely Ivory MD acetaminophen 325 - 650 mg (1 - 2 x 325 mg) PO Q4-6H PRN cholecalciferol (vitamin D3) 25 mcg PO DAILY 90 days levothyroxine 50 mcg PO QAM multivitamin 2 tabs PO DAILY Tobacco use date assessed: 03/16/23 Fall risk assessment: No Falls in past year Last assessed Fall Risk: 03/16/23 Dental Screening Dental Screen Date: 03/16/23 Did you have a dental visit in the last 12 months?: Yes Did you have a dental problem in the last 6 months where you did not have access to dental care?: No Was dental information given to patient?: Patient has dentist HPI Annual Exam HPI Details 82-year-old obese female with hyperchole sterolemia hypothyroidism osteoporosis generalized anxiety disorder last seen in August 2022. Patient is here for physical exam. Mammogram is up-to-date colonoscopy July 2018 bone density February 2021.. syncope post colon test occ nauseanight sweats and fevers recently and feels congested, having diarrhea, PFSH Medical History Hypercholesterolemia Insomnia Irritable bowel syndrome Mitral valve prolapse Non-toxic multinodular goiter Obesity (BMI 30-39.9) Osteoporosis Post-surgical hypothyroidism Right hand fracture Right renal mass Surgical History History of excision of mass History of hand surgery History of kidney surgery History of trigger finger Hx of cataract removal with insertion of prosthetic lens S/P thyroid surgery Family History (Updated 03/16/23 @ 11:47 by Arely Ivory MD) Father Prostate cancer Colon cancer Mother Oral cancer Smoker Sister Ovarian cancer Brother Prostate cancer Brother Prostate cancer Social History (Reviewed 07/14/21 @ 08:04 by [facility] House Alcohol intake: never Patient Tobacco Use Status: Former Tobacco user Tobacco use type: Cigarette Years Smoked: stopped 25 years old e-Cigarette/Vaping Use: Never Used Second Hand Smoke Exposure: Yes service: No Current occupational status: retired Cognitive needs: No Hearing needs: No Vision needs: Yes Questionnaire PHQ-9 Over the last 2 weeks, how often have you been bothered by any of the following problems? 1. Little interest or pleasure in doing things: not at all 2. Feeling down, depressed, or hopeless: several days 3. Trouble falling or staying asleep, or sleeping too much: not at all 4. Feeling tired or having little energy: not at all 5. Poor appetite or overeating: not at all 6. Feeling bad about yourself - or that you are a failure or have let yourself or your family down: not at all 7. Trouble concentrating on things, such as reading the newspaper or watching television: not at all 8. Moving or speaking so slowly that other people could have noticed. Or the opposite - being so fidgety or restless that you have been moving around a lot more than usual: not at all 9. Thoughts that you would be better off or of hurting yourself in some way: not at all Total score: 1 Depression Screening Interpretation: Negative Depression Screening Done: Yes Source: Developed by Drs. Lambert Marie, Osiris Coleman, Jonathan Sin and colleagues, with an educational brendon from [employer]. Thrive Questionnaire Date Thrive assessed: 03/16/23 I am a: Patient What is your living situation today?: I have a steady place to live Within the past 12 months, did the food you bought not last and you didn't have the money to get more?: Never true Within the past 12 months, did you worry whether your food would run out before you got money to buy more?: Never true Do you have trouble paying for medicines?: No Do you have trouble getting transportation to medical appointments?: No Do you have trouble paying your heating and electricity bill?: No Do you have trouble taking care of your child, family member or friend?: No Do you have trouble with day-to-day activities such as bathing, preparing meals, shopping, managing finances, etc.?: No Are you currently unemployed and looking for a job?: No Are you interested in more education?: No Please select the resources that you would like help with: None THRIVE Score: 0 AUDIT C Alcohol Use Questionnaire (AUDIT-C) 1. How often do you have a drink containing alcohol?: Never 3. How often do you have six or more drinks on one occasion?: Never Total Score: 0 Score Reviewed/Action Taken: No REJI-7 AMB Questionnaire REJI-7 Date REJI - 7 assessed: 03/16/23 Feeling nervous, anxious, or on edge: 0 = Not at all Not being able to stop or control worryin = Several days (due to having covid ) Worrying too much about different things: 0 = Not at all Trouble relaxin = Not at all Being so restless that it is hard to sit still: 0 = Not at all Becoming easily annoyed or irritable: 0 = Not at all Feeling afraid as if something awful might happen: 0 = Not at all Total REJI-7 score (0-4 normal; 5-9 mild; 10-14 moderate; 15-21 severe): 1 Source: Developed by Drs. Lambert Marie, Osiris Coleman, Jonathan Sin and colleagues, with an educational brendon from [employer]. Review of Systems Const Denies poor appetite and Denies weakness Eyes Denies no additional complaints ENT Reports Normal hearing present, Denies dizziness, Denies nasal congestion, Denies tinnitus and Denies sore throat Card Denies chest pain, Denies syncope, Denies rapid heart rate and Denies dyspnea Resp Denies cough and Denies dyspnea GI Denies change in stool character, Reports constipation, Denies diarrhea, Denies nausea and Denies vomiting Denies urinary frequency, Denies difficulty voiding and Denies dysuria Neuro Reports Normal hearing present, Denies confusion, Denies dizziness, Denies syncope and Denies weakness Psych Denies confusion Physical exam (Primary Care) Vital Signs: Last Vital Signs Pulse 85 03/16/23 11:16 BP 118/70 03/16/23 11:16 Pulse Ox 98 03/16/23 11:16 Oxygen Delivery Method Room Air 03/16/23 11:16 BMI result Body Mass Index 31.7 Tobacco/Smoking Status: Tobacco use Status Tobacco use date assessed 03/16/23 03/16/23 11:17 Patient Tobacco Use Status Former Tobacco user 03/16/23 11:17 Tobacco use type Cigarette 03/16/23 11:17 e-Cigarette/Vaping Use Never Used 03/16/23 11:17 PHQ-9: PHQ-9 Score PHQ-9: Total score 1 03/16/23 11:27 Depression Screening Interpretation: Negative Thrive Assessment: Date of Thrive Assessment Date Thrive assessed 03/16/23 03/16/23 11:17 Const General: No confusion Orientation/consciousness: No confusion HENMT Head: Yes normocephalic Ears: external ears normal and TM's normal bilaterally Face and sinus: Yes normal facial exam Mouth: moist mucous membranes Throat: Yes tonsils normal Eyes Conjunctivae: conjunctivae normal Pupils: Equal, round and reactive pupils present and Pupil accommodation reflex normal Direct Ophthalmoscopy: normal light reflex Neck Neck: No lymphadenopathy Thyroid: Thyroid normal Chest Chest palpation & inspection: normal inspection of the chest Resp Effort & Inspection: normal respiratory effort and no audible wheezes Auscultation: clear to auscultation bilaterally, no crackles, no wheezes and lung sounds not diminished Cardio Rate: regular rate Rhythm: regular rhythm Peripheral pulses: radial pulses present and dorsalis pedis present GI Other: guaiac negative Palpation (GI): no masses Auscultation: normal bowel sounds and normoactive bowel sounds Skin General skin exam: no rashes or lesions noted Rashes: no rashes Neuro General: No confusion Cranial nerves: Yes Equal, round and reactive pupils present and Yes Normal hearing present Cognition (Neuro): normal cognition Gait exam (Neuro): Normal gait present Motor exam (neuro): 5/5 motor strength present throughout Deep tendon reflexes (DTR's): Right brachioradialis reflex intensity grade: 2+, Left brachioradialis reflex intensity grade: 2+, Right patellar reflex intensity grade: 2+ and Left patellar reflex intensity grade: 2+ Extrem General: No edema Assessment and Plan Assessment & Plan (1) Annual physical exam: Code(s): Z00.00 - Encounter for general adult medical examination without abnormal findings (2) Obesity (BMI 30-39.9): Comment: Patient has been advised diet and exercise Code(s): E66.9 - Obesity, unspecified Plan: Diet and exercise noted loss of weight (3) Hypercholesterolemia: Comment: Avoid fried foods, chicken skin, eggs, butter margarine, pastries and meat. Be it pork or beef they have a lot of cholesterol Code(s): E78.00 - Pure hypercholesterolemia, unspecified Plan: Avoid fried foods, chicken skin, eggs, butter margarine, pastries and meat. Be it pork or beef they have a lot of cholesterol LDL goal of less than 130 and triglyceride of less than 150. Diet controlled (4) Osteoporosis: Comment: 12/2018March 2021 Code(s): M81.0 - Age-related osteoporosis without current pathological fracture Plan: Reminded about bone density (5) Post-surgical hypothyroidism: Comment: Continue with present medication. Patient follows up with endocrinology. Code(s): E89.0 - Postprocedural hypothyroidism Plan: Continue with thyroid medication August 2022 last blood work (6) Generalized anxiety disorder: Code(s): F41.1 - Generalized anxiety disorder Plan: Stable Orders: Orders Complete Blood Count Auto Diff 6 Months E78.00 - Pure hypercholesterolemia, unspecified Free T4 (Free Thyroxine) 6 Months E78.00 - Pure hypercholesterolemia, unspecified Lipid Panel 6 Months E78.00 - Pure hypercholesterolemia, unspecified Thyroid Stimulating Hormone 6 Months E78.00 - Pure hypercholesterolemia, unspecified Comprehensive Met. Panel 6 Months E78.00 - Pure hypercholesterolemia, unspecified Vitamin B12 and Folate 6 Months E78.00 - Pure hypercholesterolemia, unspecified Vitamin D 25-OH Total 6 Months E78.00 - Pure hypercholesterolemia, unspecified Coding Level of Care Code Est Pt Prev Care >65y(73673) Diagnoses Annual physical exam Z00.00 Obesity (BMI 30-39.9) E66.9 Hypercholesterolemia E78.00 Osteoporosis M81.0 Post-surgical hypothyroidism E89.0 Generalized anxiety disorder F41.1
== END 2023-03-16 12:00 | disposition home or self-care (01) ==
PROVIDERS: Visit Provider Internal Medicine
DX: Z00.00 Encounter for general adult medical examination without abnormal findings (principal); E78.00 Pure hypercholesterolemia, unspecified; M81.0 Age-related osteoporosis without current pathological fracture; E89.0 Postprocedural hypothyroidism; F41.1 Generalized anxiety disorder
CPT/HCPCS: 99397

== ENCOUNTER 2023-04-12 11:12 | Outpatient (REF) | payer MEDICARE, SELFPAY ==
[2023-04-12 11:24] LABS: MANUAL DIFF FLAG NO
[2023-04-12 11:46] LABS: Basophils Absolute Auto 0.1 X10*3/uL (0.0-0.2); Basophils Percent Auto 1.3 % (0-2); Eosinophils Absolute Auto 0.1 X10*3/uL (0.0-0.4); Eosinophils Percent Auto 1.6 % (0-4); Hematocrit 36.8 % (37.0-47.0); Imm Gran Abs Auto 0.02 X10*3/uL (0.00-0.03); Imm Gran Pct Auto 0.3 % (0.0-0.4); Lymphocytes Absolute Auto 2.7 X10*3/uL (1.2-4.9); Lymphocytes Percent Auto 43.1 % (20-40); Mean Corpuscular HGB Conc 32.6 g/dl (31.0-35.0); Mean Corpuscular Hemoglobin 32.3 pg (27.0-33.0); Mean Corpuscular Volume 99.2 fL (80.0-98.0); Mean Platelet Volume 10.4 fL (9.4-12.3); Monocytes Absolute Auto 0.5 X10*3/uL (0.1-1.2); Monocytes Percent Auto 8.2 % (2-11); Neutrophils Absolute Auto 2.8 x10*3/uL (2.0-8.3); Neutrophils Percent Auto 45.5 % (45-73); Platelet Count 243 X10*3/uL (160-400); Red Blood Count 3.71 X10*6/uL (4.20-5.50); Red Cell Distribution Width 14.2 % (11.0-16.0); White Blood Count 6.2 X10*3/uL (4.8-10.8)
[2023-04-12 12:42] LABS: Alanine Aminotransferase 13 U/L (0-31); Albumin Level 3.8 g/dL (3.5-5.0); Alkaline Phosphatase 77 U/L (39-117); Anion Gap 10 (12-20); Aspartate Amino Transferase 18 U/L (5-31); Bilirubin Total 0.5 mg/dL (0.0-1.0); Blood Urea Nitrogen 12 mg/dL (9-16); Calcium 9.2 mg/dL (8.4-10.2); Carbon Dioxide 26 mmol/L (22-29); Chloride 107 mmol/L (96-108); Cholesterol 215 mg/dL (<200); Estimated Glomerular Filt Rate > 60; Glucose Random 93 mg/dL (60-115); HDL Cholesterol 54 mg/dL (>40); LDL Cholesterol Calculated 138 mg/dL (<100); Potassium 3.8 mmol/L (3.3-5.1); Sodium 139 mmol/L (135-145); Total Protein 7.4 g/dL (6.5-8.0); Triglycerides 118 mg/dL (<150)
[2023-04-12 12:45] LABS: Free T4 (Free Thyroxine) 0.96 ng/dL (0.71-1.85); Thyroid Stimulating Hormone 2.53 uIU/mL (0.32-4.0); Vitamin D 25-OH Total 43.1 ng/mL (>30)
[2023-04-12 17:04] LABS: Folate 13.5 ng/mL (> or = 4.0)
[2023-04-13 14:49] LABS: Vitamin B12 386 pg/mL (200-900)
== END 2023-04-12 11:13 | disposition home or self-care (01) ==
LOC: HO.LAB 11:12
PROVIDERS: PCP Internal Medicine; Visit Provider Internal Medicine
DX: E78.00 Pure hypercholesterolemia, unspecified (principal)
CPT/HCPCS: 36415; 80053; 80061; 82306; 82607; 82746; 84439; 84443; 85025

== ENCOUNTER 2023-09-27 10:42 | Outpatient (AMB) | payer MEDICARE, SELFPAY ==
--- NOTE | 2023-09-27 10:46 | MHC.PC.OV ---
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 Patient is colonoscopy is up-to-date July 2018 mammogram is up-to-date 02/02/2023 bone density has been reminded. [facility] Medical History Hypercholesterolemia Insomnia Irritable bowel syndrome Mitral valve prolapse Non-toxic multinodular goiter Obesity (BMI 30-39.9) Osteoporosis Post-surgical hypothyroidism Right hand fracture Right renal mass Surgical History History of excision of mass History of hand surgery History of kidney surgery History of trigger finger Hx of cataract removal with insertion of prosthetic lens S/P thyroid surgery Family History (Updated 03/16/23 @ 11:47 by Arely Ivory MD) Father Prostate cancer Colon cancer Mother Oral cancer Smoker Sister Ovarian cancer Brother Prostate cancer Brother Prostate cancer Social History Housing: House Alcohol intake: never Patient Tobacco Use Status: Former Tobacco user Tobacco use type: Cigarette Years Smoked: stopped 25 years old e-Cigarette/Vaping Use: Never Used Second Hand Smoke Exposure: Yes service: No Current occupational status: retired Cognitive needs: No Hearing needs: No Vision needs: Yes Questionnaire Thrive Questionnaire Date Thrive assessed: 03/16/23 AUDIT C Alcohol Use Questionnaire (AUDIT-C) 1. How often do you have a drink containing alcohol?: Never 3. How often do you have six or more drinks on one occasion?: Never Total Score: 0 Score Reviewed/Action Taken: No REJI-7 AMB Questionnaire REJI-7 Date REJI - 7 assessed: 03/16/23 Feeling nervous, anxious, or on edge: 0 = Not at all Not being able to stop or control worryin = Several days (due to having covid ) Worrying too much about different things: 0 = Not at all Trouble relaxin = Not at all Being so restless that it is hard to sit still: 0 = Not at all Becoming easily annoyed or irritable: 0 = Not at all Feeling afraid as if something awful might happen: 0 = Not at all Total REJI-7 score (0-4 normal; 5-9 mild; 10-14 moderate; 15-21 severe): 1 Source: Developed by Drs. Lambert Marie, Osiris Coleman, Jonathan Sin and colleagues, with an educational brendon from [employer]. Physical exam (Primary Care) Vital Signs: Last Vital Signs Pulse 84 09/27/23 10:47 BP 136/80 09/27/23 10:47 Pulse Ox 93 09/27/23 10:47 Oxygen Delivery Method Room Air 09/27/23 10:47 BMI result Body Mass Index 31.0 Tobacco/Smoking Status: Tobacco use Status Tobacco use date assessed 03/16/23 09/27/23 10:51 Patient Tobacco Use Status Former Tobacco user 09/27/23 10:51 Tobacco use type Cigarette 09/27/23 10:51 e-Cigarette/Vaping Use Never Used 09/27/23 10:51 Thrive Assessment: Date of Thrive Assessment Date Thrive assessed 03/16/23 09/27/23 10:51 Const General: alert; No acute distress Eyes Conjunctivae: conjunctivae normal Resp Auscultation: clear to auscultation bilaterally Cardio Rate: regular rate Rhythm: regular rhythm GI Inspection: Yes normal to inspection Extrem General: Yes normal to inspection and No edema Assessment and Plan Assessment & Plan (1) Post-surgical hypothyroidism: Comment: Continue with present medication. Patient follows up with endocrinology. Code(s): E89.0 - Postprocedural hypothyroidism Plan: Continue with thyroid medication 04/05/2023 last blood work (2) Osteoporosis: Comment: 12/2018March 2021 Code(s): M81.0 - Age-related osteoporosis without current pathological fracture Plan: Reminded about bone density discussed about calcium and vitamin-D (3) Hypercholesterolemia: Comment: Avoid fried foods, chicken skin, eggs, butter margarine, pastries and meat. Be it pork or beef they have a lot of cholesterol Code(s): E78.00 - Pure hypercholesterolemia, unspecified Plan: Avoid fried foods, chicken skin, eggs, butter margarine, pastries and meat. Be it pork or beef they have a lot of cholesterol LDL goal of less than 130 and triglyceride of less than 150. (4) Obesity (BMI 30-39.9): Comment: Patient has been advised diet and exercise Code(s): E66.9 - Obesity, unspecified Plan: Diet and exercise (5) Generalized anxiety disorder: Code(s): F41.1 - Generalized anxiety disorder Plan: Stable Orders: Orders XR DEXA axial skeleton Today M81.0 - Age-related osteoporosis without current pathological fracture Coding Level of Care Code Est Pt Level 4 (26415) Diagnoses Post-surgical hypothyroidism E89.0 Osteoporosis M81.0 Hypercholesterolemia E78.00 Obesity (BMI 30-39.9) E66.9 Generalized anxiety disorder F41.1
[2023-09-27 10:47] VITALS: BP 136/80; PULSE 84; O2SAT 93; BMI 31.0
== END 2023-09-27 11:29 | disposition home or self-care (01) ==
PROVIDERS: PCP Internal Medicine; Visit Provider Internal Medicine
DX: E89.0 Postprocedural hypothyroidism (principal); Z68.30 Body mass index [BMI] 30.0-30.9, adult; E66.9 Obesity, unspecified; M81.0 Age-related osteoporosis without current pathological fracture; E78.00 Pure hypercholesterolemia, unspecified; F41.1 Generalized anxiety disorder
CPT/HCPCS: 99214

== ENCOUNTER 2024-03-02 15:01 | Outpatient (AMB) | payer MEDICARE, SELFPAY ==
--- NOTE | 2024-03-02 15:07 | A.OFFPC_ITS ---
Intake Visit Reasons: Cold symptoms Allergies No Known Allergies [No Known Allergies*] Allergy (Verified 03/02/24 15:07) Tobacco use date assessed: 03/02/24 Fall risk assessment: No Falls in past year Last assessed Fall Risk: 03/02/24 Dental Screening Dental Screen Date: 03/02/24 Did you have a dental visit in the last 12 months?: Yes Did you have a dental problem in the last 6 months where you did not have access to dental care?: No Was dental information given to patient?: Patient has dentist HPI Cold symptoms HPI Details lMOM 2 x congested myalgia February 28, 2024 diaphoretic, had diarrhea, covid test negative, no sore throat, , mucinex sinus The patient is an 83-year-old female presenting with symptoms consistent with a viral upper respiratory infection. The symptoms began approximately Tuesday prior to the visit, including a sensation of congestion in the chest and nose, generalized aches, and increased perspiration, particularly at night. The patient reports performing a COVID-19 test, which yielded a negative result. She reported additional symptoms including body aches alleviated by acetaminophen, which also aids in settling her nerves and promoting sleep. The patient has avoided taking certain slou-dbe-opmgtyj cold medications due to concerns about liver health and potential anxiety side effects. No sore throat has been present. She feels slightly improved compared to the previous day and has been adhering to conservative management approaches such as rest and fluid intake. - Respiratory: Reports congestion in the chest and nose. - Musculoskeletal: Reports generalized a ches. - General: Reports excessive perspiratio n, particularly at night, and feeling anxious. [facility] Medical History Hypercholesterolemia Insomnia Irritable bowel syndrome Mitral valve prolapse Non-toxic multinodular goiter Obesity (BMI 30-39.9) Osteoporosis Post-surgical hypothyroidism Right hand fracture Right renal mass Surgical History History of excision of mass History of hand surgery History of kidney surgery History of trigger finger Hx of cataract removal with insertion of prosthetic lens S/P thyroid surgery Family History (Updated 03/16/23 @ 11:47 by Arely Ivory MD) Father Prostate cancer Colon cancer Mother Oral cancer Smoker Sister Ovarian cancer Brother Prostate cancer Brother Prostate cancer Social History (Reviewed 07/14/21 @ 08:04 by Long Solis [facility]) Housing: House Alcohol intake: never Patient Tobacco Use Status: Former Tobacco user Tobacco use type: Cigarette Years Smoked: stopped 25 years old e-Cigarette/Vaping Use: Never Used Second Hand Smoke Exposure: Yes service: No Current occupational status: retired Cognitive needs: No Hearing needs: No Vision needs: Yes Questionnaire PHQ-9 Over the last 2 weeks, how often have you been bothered by any of the following problems? 1. Little interest or pleasure in doing things: not at all 2. Feeling down, depressed, or hopeless: several days 3. Trouble falling or staying asleep, or sleeping too much: not at all 4. Feeling tired or having little energy: not at all 5. Poor appetite or overeating: not at all 6. Feeling bad about yourself - or that you are a failure or have let yourself or your family down: not at all 7. Trouble concentrating on things, such as reading the newspaper or watching television: not at all 8. Moving or speaking so slowly that other people could have noticed. Or the opposite - being so fidgety or restless that you have been moving around a lot more than usual: not at all 9. Thoughts that you would be better off or of hurting yourself in some way: not at all Total score: 1 Depression Screening Interpretation: Negative Depression Screening Done: Yes Source: Developed by Drs. Lambert Marie, Osiris Coleman, Jonathan Sin and colleagues, with an educational brendon from [employer]. Thrive Questionnaire Date Thrive assessed: 03/02/24 I am a: Patient What is your living situation today?: I have a steady place to live Within the past 12 months, did the food you bought not last and you didn't have the money to get more?: Never true Within the past 12 months, did you worry whether your food would run out before you got money to buy more?: Never true Do you have trouble paying for medicines?: No Do you have trouble getting transportation to medical appointments?: No Do you have trouble paying your heating and electricity bill?: No Do you have trouble taking care of your child, family member or friend?: No Do you have trouble with day-to-day activities such as bathing, preparing meals, shopping, managing finances, etc.?: No Are you currently unemployed and looking for a job?: No Are you interested in more education?: No Currently or been in a relationship where the following occur: No concerns reported THRIVE Score: 0 AUDIT C Alcohol Use Questionnaire (AUDIT-C) 1. How often do you have a drink containing alcohol?: Never 3. How often do you have six or more drinks on one occasion?: Never Total Score: 0 Score Reviewed/Action Taken: No REJI-7 AMB Questionnaire REJI-7 Date REJI - 7 assessed: 03/02/24 Feeling nervous, anxious, or on edge: 0 = Not at all Not being able to stop or control worryin = Several days (due to having covid ) Worrying too much about different things: 0 = Not at all Trouble relaxin = Not at all Being so restless that it is hard to sit still: 0 = Not at all Becoming easily annoyed or irritable: 0 = Not at all Feeling afraid as if something awful might happen: 0 = Not at all Total REJI-7 score (0-4 normal; 5-9 mild; 10-14 moderate; 15-21 severe): 1 Source: Developed by Drs. Lambert Marie, Osiris Coleman, Jonathan Sin and colleagues, with an educational brendon from [employer]. Physical exam (Primary Care) Tobacco/Smoking Status: Tobacco use Status Tobacco use date assessed 03/02/24 03/02/24 15:10 Patient Tobacco Use Status Former Tobacco user 03/02/24 15:10 Tobacco use type Cigarette 03/02/24 15:10 e-Cigarette/Vaping Use Never Used 03/02/24 15:10 PHQ-9: PHQ-9 Score PHQ-9: Total score 1 03/02/24 15:10 Depression Screening Interpretation: Negative Thrive Assessment: Date of Thrive Assessment Date Thrive assessed 03/02/24 03/02/24 15:10 Currently or been in a relationship where the following occur: No concerns reported Telehealth Telehealth Location of provider rendering services: practice address Location of patient: address on file Patient Identification confirmed using: Name, : Yes Telehealth method: voice only Patient verbally consented to treatment: Yes Patient verbally consented to billing insurance company: Yes Patient informed of any privacy concerns related to visit: Yes Minutes spent on Phone/Video with Pt.: 15 Coding Level of Care Code Tele Est Pt Level 3 (89903) Diagnoses Upper respiratory infection J06.9 Assessment & Plan Assessment & Plan (1) Upper respiratory infection: Code(s): J06.9 - Acute upper respiratory infection, unspecified Category: Medical Plan: increase oral fluids , rest , may take tylenol for myalgia.. Plan - Encourage continued rest and hydration to assist recovery from viral infection. - Recommend acetaminophen as needed for pain relief and to manage aches. - Advise against use of additional qsje-gyz-mekywui medications containing acetaminophen to prevent potential overdose. - Consider the possibility of Respiratory Syncytial Virus RSV) considering current symptoms, but focus on symptomatic treatment. - Suggest considering lozenges if sore throat develops, although none present currently. - Negative COVID-19 result; continue monitoring symptoms for any changes. During the visit, I discussed with the patient the likelihood of her symptoms being due to a viral upper respiratory infection. We reviewed the importance of hydration and the use of acetaminophen for symptom relief, considering her concerns about liver health. I explained that using additional vntc-tzq-tgrxpqm medications with acetaminophen should be done with caution. I addressed her anxiety related to certain medications and emphasized monitoring blood pressure when using medications containing pseudoephedrine due to potential for palpitations and increased blood pressure. We discussed that her COVID-19 test was negative, and I reassured her that symptom management with rest and fluids is the current focus. I emphasized that improvement should be gradual and advised on follow-up if symptoms worsen. - Drink plenty of fluids to stay hydrated. - Use acetaminophen as needed to manage pain and aches, not exceeding recommended doses. - Avoid taking multiple products containing acetaminophen simultaneously. - Rest adequately to support recovery. - Monitor symptoms and seek medical attention if they worsen or new symptoms develop. - Use lozenges if a sore throat arises. - Continue monitoring for fever or worsening symptoms, and follow up if necessary.
== END 2024-03-02 15:48 | disposition home or self-care (01) ==
LOC: HO.HMCH 15:01
PROVIDERS: PCP Internal Medicine; Visit Provider Internal Medicine
DX: J06.9 Acute upper respiratory infection, unspecified (principal)

== ENCOUNTER → 2024-03-02 15:01 | Outpatient (BNVA) | payer MEDICARE, SELFPAY | PROVIDERS: PCP Internal Medicine; Visit Provider Internal Medicine ==

== ENCOUNTER 2024-03-12 13:46 | Outpatient (REF) | payer MEDICARE, SELFPAY | END 2024-03-12 13:47 | disposition home or self-care (01) | LOC: HO.MAMMO 13:46 | PROVIDERS: PCP Internal Medicine; Visit Provider Internal Medicine | DX: Z12.31 Encounter for screening mammogram for malignant neoplasm of breast (principal) | CPT/HCPCS: 77063; 77067 ==

== ENCOUNTER → 2024-03-12 14:00 | Outpatient (BNV) | payer MEDICARE, SELFPAY | PROVIDERS: PCP Internal Medicine; Visit Provider Internal Medicine | DX: Z12.31 Encounter for screening mammogram for malignant neoplasm of breast (principal) | CPT/HCPCS: 77063; 77067 ==

== ENCOUNTER 2024-03-22 12:24 | Outpatient (AMB) | payer MEDICARE, SELFPAY ==
[2024-03-22 12:26] VITALS: BP 124/78; PULSE 80; O2SAT 95; BMI 30.6
--- NOTE | 2024-03-22 12:26 | A.OFFPC_ITS ---
Vital Signs 03/22/24 12:26 Height 5 ft 5 in Weight 184 lb BMI 30.6 BP 124/78 Blood Pressure Location Lt brachial Position Sitting Pulse 80 Pulse Source Pulse Oximeter Pulse Oximetry (%) 95 Oxygen Delivery Method Room Air Intake Visit Reasons: pe Allergies No Known Allergies [No Known Allergies*] Allergy (Verified 03/22/24 12:27) Medication List - Last Reconciled 03/22/24 by Arely Ivory MD acetaminophen 325 - 650 mg (1 - 2 x 325 mg) PO Q4-6H PRN cholecalciferol (vitamin D3) 25 mcg PO DAILY 90 days levothyroxine 50 mcg PO QAM multivitamin 2 tabs PO DAILY Tobacco use date assessed: 03/22/24 Fall risk assessment: No Falls in past year Last assessed Fall Risk: 03/22/24 Dental Screening Dental Screen Date: 03/02/24 HPI pe HPI Details dizzy The patient is an 83-year-old female presenting with concerns of nervousness, fatigue, and episodic wheezing. The patient has a significant past medical history including hypothyroidism, osteoporosis, hypercholesterolemia, and generalized anxiety disorder. The current symptoms began after a recent illness, possibly an upper respiratory tract infection noted in mid-March 2023, which was characterized by wheezing. The patient denies any desire to use medication for anxiety and opts to manage it without pharmacological interventions. She reports feeling exhausted after simple tasks such as showering and describes her wheezing as intermittent since the recent illness last month. The patient is compliant with her thyroid medication but admits to insufficient hydration despite having reminders set on her phone. She exercises regularly at home and is planning to resume aquacents next week. She expresses concern about social isolation but finds relief in social engagements, as evidenced by a recent gathering with friends. There is also mention of buzzing in the ears, which might warrant hearing evaluation though it was done last in 2021. The patient?s last mammogram was in February 2024, and her last colonoscopy was in 2018. The bone density test was last conducted in February 2021, and the patient admits she has not yet scheduled her follow-up despite having a request made for it. Blood work was last done in March 2023. - Mammogram up to date as of February - Last colonoscopy conducted in 2018 - Bone density test conducted in February 2021 - Thyroid function monitored through [facility] - Flu vaccine reported from September 2022 - Patient-agreed to consider a repeat [place] VID-19 vaccine due to upcoming travel - Hypertension monitored; blood pressure good - Neurological status addressed via navdeep ent-reported buzzing in ears; referral for hearing test suggested - Resides independently but reports feel ings of social isolation - Engages in aerobics exercises at home three times weekly - Plans to resume aquatic exercises - Adequate nutrition intake reported but inadequate hydration - Non-smoker and abstains from alcohol c onsumption - Expresses anxiety about financial stab ility and social support systems - Respiratory: Reports episodic wheezing , no shortness of breath during exam - Neurological: Denies dizziness, positi ve for hand tremors - Gastrointestinal: Has diarrhea managed with Metamucil, denies nausea and vomiting - Genitourinary: Nighttime urination onc e per night - Musculoskeletal: Reports fatigue and e xhaustion - EENT: Reports buzzing in ears; denies hearing loss - Labs: Blood work conducted in March 2023 - Tests and Diagnostics: Bone density la st performed February 2021; Mammogram February 2024 [facility] Medical History Hypercholesterolemia Insomnia Irritable bowel syndrome Mitral valve prolapse Non-toxic multinodular goiter Obesity (BMI 30-39.9) Osteoporosis Post-surgical hypothyroidism Right hand fracture Right renal mass Surgical History History of excision of mass History of hand surgery History of kidney surgery History of trigger finger Hx of cataract removal with insertion of prosthetic lens S/P thyroid surgery Family History (Updated 03/16/23 @ 11:47 by Arely Ivory MD) Father Prostate cancer Colon cancer Mother Oral cancer Smoker Sister Ovarian cancer Brother Prostate cancer Brother Prostate cancer Social History Housing: House Alcohol intake: never Patient Tobacco Use Status: Former Tobacco user Tobacco use type: Cigarette Years Smoked: stopped 25 years old e-Cigarette/Vaping Use: Never Used Second Hand Smoke Exposure: Yes service: No Current occupational status: retired Cognitive needs: No Hearing needs: No Vision needs: Yes Questionnaire PHQ-9 Over the last 2 weeks, how often have you been bothered by any of the following problems? 1. Little interest or pleasure in doing things: several days 2. Feeling down, depressed, or hopeless: more than half the days 3. Trouble falling or staying asleep, or sleeping too much: several days 4. Feeling tired or having little energy: more than half the days 5. Poor appetite or overeating: several days 6. Feeling bad about yourself - or that you are a failure or have let yourself or your family down: not at all 7. Trouble concentrating on things, such as reading the newspaper or watching television: more than half the days 8. Moving or speaking so slowly that other people could have noticed. Or the opposite - being so fidgety or restless that you have been moving around a lot more than usual: not at all 9. Thoughts that you would be better off or of hurting yourself in some way: not at all Total score: 9 Source: Developed by Drs. Lambert Marie, Osiris Coleman, Jonathan Sin and colleagues, with an educational brendon from [employer] Thrive Questionnaire Date Thrive assessed: 03/15/24 I am a: Patient What is your living situation today?: I have a steady place to live Within the past 12 months, did the food you bought not last and you didn't have the money to get more?: Never true Within the past 12 months, did you worry whether your food would run out before you got money to buy more?: Never true Do you have trouble paying for medicines?: No Do you have trouble getting transportation to medical appointments?: No Do you have trouble paying your heating and electricity bill?: No Do you have trouble taking care of your child, family member or friend?: I choose not to answer this question Do you have trouble with day-to-day activities such as bathing, preparing meals, shopping, managing finances, etc.?: I choose not to answer this question Are you currently unemployed and looking for a job?: No Are you interested in more education?: No Please select the resources that you would like help with: None Currently or been in a relationship where the following occur: I choose not to answer THRIVE Score: 0 AUDIT C Alcohol Use Questionnaire (AUDIT-C) 1. How often do you have a drink containing alcohol?: Never 3. How often do you have six or more drinks on one occasion?: Never Total Score: 0 REJI-7 AMB Questionnaire REJI-7 Date REJI - 7 assessed: 03/02/24 Feeling nervous, anxious, or on edge: 3 = Nearly every day Not being able to stop or control worryin = Several days Worrying too much about different things: 1 = Several days Trouble relaxin = More than half the days Being so restless that it is hard to sit still: 2 = More than half the days Becoming easily annoyed or irritable: 2 = More than half the days Feeling afraid as if something awful might happen: 2 = More than half the days Total REJI-7 score (0-4 normal; 5-9 mild; 10-14 moderate; 15-21 severe): 13 Source: Developed by Drs. Lambert Marie, Osiris Coleman, Jonathan Sin and colleagues, with an educational brendon from [employer] Review of Systems Const Denies poor appetite and Denies weakness Eyes Denies no additional complaints ENT Reports Normal hearing present, Denies dizziness, Denies nasal congestion, Denies tinnitus and Denies sore throat Card Denies chest pain, Denies syncope, Denies rapid heart rate and Denies dyspnea Resp Denies cough and Denies dyspnea GI Denies change in stool character, Reports constipation, Denies diarrhea, Denies nausea and Denies vomiting Denies urinary frequency, Denies difficulty voiding and Denies dysuria Neuro Reports Normal hearing present, Denies confusion, Denies dizziness, Denies syncope and Denies weakness Psych Denies confusion Physical exam (Primary Care) Vital Signs: Last Vital Signs Pulse 80 03/22/24 12:26 BP 124/78 03/22/24 12:26 Pulse Ox 95 03/22/24 12:26 Oxygen Delivery Method Room Air 03/22/24 12:26 BMI result Body Mass Index 30.6 Tobacco/Smoking Status: Tobacco use Status Tobacco use date assessed 03/22/24 03/22/24 12:34 Patient Tobacco Use Status Former Tobacco user 03/22/24 12:34 Tobacco use type Cigarette 03/22/24 12:34 e-Cigarette/Vaping Use Never Used 03/22/24 12:34 PHQ-9: PHQ-9 Score PHQ-9: Total score 9 03/22/24 12:34 Thrive Assessment: Date of Thrive Assessment Date Thrive assessed 03/15/24 03/22/24 12:34 Currently or been in a relationship where the following occur: I choose not to answer Const General: No confusion Orientation/consciousness: No confusion HENMT Head: Yes normocephalic Ears: external ears normal and TM's normal bilaterally Face and sinus: Yes normal facial exam Mouth: moist mucous membranes Throat: Yes tonsils normal Eyes Conjunctivae: conjunctivae normal Pupils: Equal, round and reactive pupils present and Pupil accommodation reflex normal Direct Ophthalmoscopy: normal light reflex Neck Neck: No lymphadenopathy Thyroid: Thyroid normal Chest Chest palpation & inspection: normal inspection of the chest Resp Effort & Inspection: normal respiratory effort and no audible wheezes Auscultation: clear to auscultation bilaterally, no crackles, no wheezes and lung sounds not diminished Cardio Rate: regular rate Rhythm: regular rhythm Peripheral pulses: radial pulses present and dorsalis pedis present GI Other: guaiac negative Palpation (GI): no masses Auscultation: normal bowel sounds and normoactive bowel sounds Skin General skin exam: no rashes or lesions noted Rashes: no rashes Neuro General: No confusion Cranial nerves: Yes Equal, round and reactive pupils present and Yes Normal hearing present Cognition (Neuro): normal cognition Gait exam (Neuro): Normal gait present Motor exam (neuro): 5/5 motor strength present throughout Deep tendon reflexes (DTR's): Right brachioradialis reflex intensity grade: 2+, Left brachioradialis reflex intensity grade: 2+, Right patellar reflex intensity grade: 2+ and Left patellar reflex intensity grade: 2+ Extrem General: No edema Coding Level of Care Code Est Pt Prev Care >65y(74691) Diagnoses Annual physical exam Z00.00 Obesity (BMI 30-39.9) E66.9 Hypercholesterolemia E78.00 Osteoporosis M81.0 Post-surgical hypothyroidism E89.0 Generalized anxiety disorder F41.1 Hearing deficit H91.90 Assessment & Plan Assessment & Plan (1) Annual physical exam: Code(s): Z00.00 - Encounter for general adult medical examination without abnormal findings Category: Medical (2) Obesity (BMI 30-39.9): Comment: Patient has been advised diet and exercise Code(s): E66.9 - Obesity, unspecified Category: Medical (3) Hypercholesterolemia: Comment: Avoid fried foods, chicken skin, eggs, butter margarine, pastries and meat. Be it pork or beef they have a lot of cholesterol Code(s): E78.00 - Pure hypercholesterolemia, unspecified Category: Medical (4) Osteoporosis: Comment: 12/2018March 2021 Code(s): M81.0 - Age-related osteoporosis without current pathological fracture Category: Medical (5) Post-surgical hypothyroidism: Comment: Continue with present medication. Patient follows up with endocrinology. Code(s): E89.0 - Postprocedural hypothyroidism Category: Medical (6) Generalized anxiety disorder: Code(s): F41.1 - Generalized anxiety disorder Category: Medical (7) Hearing deficit: Code(s): H91.90 - Unspecified hearing loss, unspecified ear Category: Medical Plan - Labs: Blood work conducted in March 2023 - Tests and Diagnostics: Bone density last performed February 2021; Mammogram February 2024 I discussed the patient?s current symptoms and ongoing diagnoses, including hypothyroidism, osteoporosis, and anxiety management without pharmacotherapy. The patient is aware of the audible wheezing and is advised on the use of a bronchodilator inhaler. We reviewed the need for adequate hydration for overall health and to alleviate symptoms of fatigue and dizziness. I explained the importance of resuming aquatic therapy to help manage osteoporosis effectively. Vaccination status, including COVID-19 vaccine booster prior to the upcoming travel to the [facility], was discussed. Consent for referral for hearing evaluation was obtained, given concerned ear buzzing. - Use the prescribed inhaler as needed for wheezing following demonstrated technique. - Maintain your current medication for hypothyroidism and have regular thyroid level checks. - Increase water intake to help manage symptoms of fatigue. - Attempt to resume aquatic exercise classes next week. - Schedule your bone density follow-up tests as previously requested. - Given travel plans, consider obtaining the COVID-19 booster shot. - Follow up on referral for a hearing test to evaluate ongoing buzzing in the ears. - Arrange your healthcare visits post-travel for an updated review. - Episodic wheezing: Initiate bronchodilator inhaler for as-needed use. Educate on inhaler technique. - Generalized Anxiety Disorder: Monitor symptoms; non-pharmacological approach continued per patient preference. - Osteoporosis: Encourage resumption of aquatics exercise and continuation of routine bone density tests. - Hypercholesterolemia: Maintain current treatment and check lipid profile as needed. - Hypothyroidism: Continue current thyroid medication; routine blood tests for thyroid levels suggested. - Fatigue: Evaluate hydration status; encourage increased water intake. - Buzzing in ears and hearing evaluation: Referral for hearing test due to persistent symptoms. Patient was informed and verbally consented to the use of an ambient scribe for clinic note documentation during this visit. Orders: Orders Hemoglobin A1c Today E78.00 - Pure hypercholesterolemia, unspecified Lipid Panel Today E78.00 - Pure hypercholesterolemia, unspecified Thyroid Stimulating Hormone Today E78.00 - Pure hypercholesterolemia, unspecified Vitamin B12 and Folate Today E78.00 - Pure hypercholesterolemia, unspecified Vitamin D 25-OH Total Today E78.00 - Pure hypercholesterolemia, unspecified Comprehensive Met. Panel Today E78.00 - Pure hypercholesterolemia, unspecified Complete Blood Count Auto Diff Today E78.00 - Pure hypercholesterolemia, unspecified Free T4 (Free Thyroxine) Today E78.00 - Pure hypercholesterolemia, unspecified Referrals Speech and Hearing Referral H91.90 - Unspecified hearing loss, unspecified ear Medications: New albuterol sulfate 90 mcg/actuation (Proair Digihaler) 2 inhalations inhalation Q4-6H PRN 1 ea 0RF shortness of breath or wheezing J06.9 - Acute upper respiratory infection, unspecified albuterol sulfate 90 mcg/actuation (Proair Digihaler) 2 inhalations inhalation Q4-6H PRN 1 ea 0RF shortness of breath or wheezing J06.9 - Acute upper respiratory infection, unspecified
== END 2024-03-22 13:05 | disposition home or self-care (01) ==
PROVIDERS: PCP Internal Medicine; Visit Provider Internal Medicine
DX: Z00.00 Encounter for general adult medical examination without abnormal findings (principal); E66.9 Obesity, unspecified; Z68.30 Body mass index [BMI] 30.0-30.9, adult; E78.00 Pure hypercholesterolemia, unspecified; M81.0 Age-related osteoporosis without current pathological fracture; E89.0 Postprocedural hypothyroidism; F41.1 Generalized anxiety disorder; H91.93 Unspecified hearing loss, bilateral

== ENCOUNTER → 2024-03-22 12:24 | Outpatient (BNVA) | payer MEDICARE, SELFPAY | PROVIDERS: PCP Internal Medicine; Visit Provider Internal Medicine | DX: Z00.00 Encounter for general adult medical examination without abnormal findings (principal); E66.9 Obesity, unspecified; E78.00 Pure hypercholesterolemia, unspecified; E89.0 Postprocedural hypothyroidism; M81.0 Age-related osteoporosis without current pathological fracture; F41.1 Generalized anxiety disorder; H91.90 Unspecified hearing loss, unspecified ear | CPT/HCPCS: 99397 ==

== ENCOUNTER 2024-04-19 14:39 | Outpatient (REF) | payer MEDICARE, SELFPAY | END 2024-04-19 14:40 | disposition home or self-care (01) | LOC: HO.SH 14:39 | PROVIDERS: Visit Provider Internal Medicine | DX: Z01.118 Encounter for examination of ears and hearing with other abnormal findings (principal); H90.3 Sensorineural hearing loss, bilateral | CPT/HCPCS: 92552; 92556 ==

== ENCOUNTER 2024-08-23 10:35 | Outpatient (REF) | payer MEDICARE, SELFPAY ==
[2024-08-23 10:55] LABS: MANUAL DIFF FLAG NO
[2024-08-23 11:01] LABS: Hematocrit 35.9 % (37.0-47.0); Hemoglobin 11.9 g/dl (12.0-16.0); Imm Gran Abs Auto 0.01 X10*3/uL (0.00-0.03); Imm Gran Pct Auto 0.2 % (0.0-0.4); Lymphocytes Absolute Auto 1.8 X10*3/uL (1.2-4.9); Mean Corpuscular HGB Conc 33.1 g/dl (31.0-35.0); Mean Corpuscular Hemoglobin 34.6 pg (27.0-33.0); Mean Corpuscular Volume 104.4 fL (80.0-98.0); NRBC Abs Auto 0.000 X10*3/uL (0.0-0.012); NRBC Pct Auto 0.0 /100WBC (0.0-0.2); Platelet Count 263 X10*3/uL (160-400); Red Blood Count 3.44 X10*6/uL (4.20-5.50); White Blood Count 5.9 X10*3/uL (4.8-10.8)
[2024-08-23 11:09] LABS: Hemoglobin A1C 124.9387 umol/L; Total Hemoglobin (HGBA1C) 3181.1191 umol/L
--- OUTSIDE RECORDS SUMMARY | 2024-08-23 11:15 | XMS_ITS | Patient Health Record ---
Author Organization [facility] Address [address] [place] [address] Care Team Providers Care Oil Laboratory Analyst Name Role Phone Arely Ivory MD Primary Care Provider Collins Grover Jr Unavailable Reason For Referral No Information Medications Medication SIG (Take, Route, Frequency, Duration) Notes Start Date End Date Status Calcium 500 MG 1 tablet Orally Once a day Active Colyte with Flavor Packs 240 GM As directed Orally Over the specified time. for 1 day(s) 06/14/2018 Active Vitamin D3 2000 UNIT 1 capsule Orally On ce a day Active Vitamin C 500 MG as directed Orally O nce a day Active Immunizations Vaccine Route Administration Date Status Comme nts Influenza Unknown 06/14/2018 Refused Problems Problem Type SNOMED Code ICD Code Onset Dates Problem Status W/U Status Risk Notes Problem 06279263 Rectal bleeding (K62.5) Active confirmed Problem 247265177 Abnormal CT scan, kidney (R93.429) Active confirmed Plan Of Treatment Future Test Test Name Order Date COLONOSCOPY 04/16/2011 COLONOSCOPY 06/14/2018 Insurance Providers Payer Name Payer Address Payer Phone Subscriber Number Group Number Insured Name Patient Relationship to Insured Coverage Start Date Coverage End Date [facility] [address] [place], [place] [id number] [phone] [id number] MYRICK Self - patient is the insured Medical (General) History Medical History History ICD Code lichen planus elevated cholesterol Denies MT,DM,CVA,Lung disease,renal dise ase Surgical History Surgery Date(Month/Year) trigger finger repair thyroid removed left side 04/2018
[2024-08-23 11:34] LABS: Alanine Aminotransferase 15 U/L (0-31); Albumin Level 4.0 g/dL (3.5-5.0); Alkaline Phosphatase 74 U/L (39-117); Anion Gap 10 (12-20); Aspartate Amino Transferase 23 U/L (5-31); Blood Urea Nitrogen 11 mg/dL (9-16); Calcium 9.0 mg/dL (8.4-10.2); Carbon Dioxide 26 mmol/L (22-29); Chloride 108 mmol/L (96-108); Cholesterol 220 mg/dL (<200); Estimated Glomerular Filt Rate 51; HDL Cholesterol 54 mg/dL (>40); Potassium 4.3 mmol/L (3.3-5.1); Sodium 140 mmol/L (135-145); Total Protein 7.3 g/dL (6.5-8.0); Triglycerides 122 mg/dL (<150)
[2024-08-23 11:54] LABS: Free T4 (Free Thyroxine) 0.94 ng/dL (0.71-1.85); Thyroid Stimulating Hormone 2.63 uIU/mL (0.32-4.0)
[2024-08-23 12:06] LABS: Folate 13.8 ng/mL (> or = 4.0); Vitamin B12 393 pg/mL (200-900)
== END 2024-08-23 10:36 | disposition home or self-care (01) ==
LOC: HO.LAB 10:35
PROVIDERS: PCP Internal Medicine; Visit Provider Internal Medicine
DX: E78.00 Pure hypercholesterolemia, unspecified (principal); Z13.1 Encounter for screening for diabetes mellitus
CPT/HCPCS: 36415; 80053; 80061; 82306; 82607; 82746; 83036; 84439; 84443; 85025

== ENCOUNTER 2024-09-24 12:56 | Outpatient (AMB) | payer MEDICARE, SELFPAY ==
--- NOTE | 2024-09-24 13:00 | A.OFFPC_ITS ---
Vital Signs 09/24/24 13:01 Height 5 ft 5 in Weight 190 lb 8 oz BMI 31.7 BP 120/66 Blood Pressure Location Lt brachial Position Sitting Pulse 68 Pulse Source Pulse Oximeter Temp 97.1 F Temp Source Temporal Artery Scan Pulse Oximetry (%) 97 Oxygen Delivery Method Room Air Intake Visit Reasons: 6 Month F/U Intake Note: Patient is here to follow up on Hypercholesterolemia. Duck Operator Required: No Medical Management Specialist: Not Required per policy Accompanied by: Self / Same As Patient Allergies No Known Allergies (No Known Allergies*) Allergy (Verified 09/24/24 13:01) Tobacco use date assessed: 09/24/24 Fall risk assessment: No Falls in past year Last assessed Fall Risk: 09/24/24 Dental Screening Dental Screen Date: 03/02/24 [facility] Medical History Hypercholesterolemia Insomnia Irritable bowel syndrome Mitral valve prolapse Non-toxic multinodular goiter Obesity (BMI 30-39.9) Osteoporosis Post-surgical hypothyroidism Right hand fracture Right renal mass Surgical History History of excision of mass History of hand surgery History of trigger finger History of kidney surgery S/P thyroid surgery Hx of cataract removal with insertion of prosthetic lens Family History Father Prostate cancer Colon cancer Mother Oral cancer Smoker Sister Ovarian cancer Brother Prostate cancer Brother Prostate cancer Social History Housing: House Alcohol intake: never Patient Tobacco Use Status: Former Tobacco user Tobacco use type: Cigarette Years Smoked: stopped 25 years old e-Cigarette/Vaping Use: Never Used Second Hand Smoke Exposure: Yes service: No Current occupational status: retired Cognitive needs: No Hearing needs: No Vision needs: Yes Questionnaire Thrive Questionnaire Date Thrive assessed: 03/15/24 I am a: Patient What is your living situation today?: I have a steady place to live Within the past 12 months, did the food you bought not last and you didn't have the money to get more?: Never true Within the past 12 months, did you worry whether your food would run out before you got money to buy more?: Never true Do you have trouble paying for medicines?: No Do you have trouble getting transportation to medical appointments?: No Do you have trouble paying your heating and electricity bill?: No Do you have trouble taking care of your child, family member or friend?: I choose not to answer this question Do you have trouble with day-to-day activities such as bathing, preparing meals, shopping, managing finances, etc.?: I choose not to answer this question Are you currently unemployed and looking for a job?: No Are you interested in more education?: No Please select the resources that you would like help with: None Currently or been in a relationship where the following occur: I choose not to answer THRIVE Score: 0 AUDIT C Alcohol Use Questionnaire (AUDIT-C) 2. How many drinks containing alcohol do you have on a typical day when you are drinking?: 1 or 2 Total Score: 0 REJI-7 AMB Questionnaire REJI-7 Date REJI - 7 assessed: 03/02/24 Source: Developed by Drs. Lambert Marie, Osiris Coleman, Jonathan Sin and colleagues, with an educational brendon from [employer]. Physical exam (Primary Care) Vital Signs: Last Vital Signs Temp 97.1 F 09/24/24 13:01 Pulse 68 09/24/24 13:01 BP 120/66 09/24/24 13:01 Pulse Ox 97 09/24/24 13:01 Oxygen Delivery Method Room Air 09/24/24 13:01 BMI result Body Mass Index 31.7 Tobacco/Smoking Status: Tobacco use Status Tobacco use date assessed 09/24/24 09/24/24 13:13 Patient Tobacco Use Status Former Tobacco user 09/24/24 13:13 Tobacco use type Cigarette 09/24/24 13:13 e-Cigarette/Vaping Use Never Used 09/24/24 13:13 Thrive Assessment: Date of Thrive Assessment Date Thrive assessed 03/15/24 09/24/24 13:13 Currently or been in a relationship where the following occur: I choose not to answer Const General: alert; No acute distress Eyes Conjunctivae: conjunctivae normal Resp Auscultation: clear to auscultation bilaterally Cardio Rate: regular rate Rhythm: regular rhythm GI Inspection: Yes normal to inspection Extrem General: Yes normal to inspection and No edema Coding Level of Care Code Est Pt Level 4 (14592) Complex EM visit Add On G2211 Diagnoses Post-surgical hypothyroidism E89.0 Hypercholesterolemia E78.00 Osteoporosis M81.0 Obesity (BMI 30-39.9) E66.9 Generalized anxiety disorder F41.1 Assessment & Plan Assessment & Plan (1) Post-surgical hypothyroidism: Comment: Continue with present medication. Patient follows up with endocrinology. Code(s): E89.0 - Postprocedural hypothyroidism Category: Medical Plan: Continue with present thyroid medication levothyroxine 50 mcg once a day (2) Hypercholesterolemia: Comment: Avoid fried foods, chicken skin, eggs, butter margarine, pastries and meat. Be it pork or beef they have a lot of cholesterol Code(s): E78.00 - Pure hypercholesterolemia, unspecified Category: Medical Plan: Avoid fried foods, chicken skin, eggs, butter margarine, pastries and meat. Be it pork or beef they have a lot of cholesterol LDL goal of less than 130 and triglyceride of less than 150. (3) Osteoporosis: Comment: 12/2018March 2021 Code(s): M81.0 - Age-related osteoporosis without current pathological fracture Category: Medical Plan: Patient is reminded about the bone density (4) Obesity (BMI 30-39.9): Comment: Patient has been advised diet and exercise Code(s): E66.9 - Obesity, unspecified Category: Medical Plan: Diet and exercise (5) Generalized anxiety disorder: Code(s): F41.1 - Generalized anxiety disorder Category: Medical Plan: Stable Plan History of Present Illness The patient is an 83-year-old female presenting for a follow-up visit to manage multiple chronic conditions including hypothyroidism, hypercholesterolemia, osteoporosis, and anxiety disorder. The patient has a history of hypothyroidism, which is currently managed with levothyroxine 50 mg daily. She reports adherence to her medication regimen and has not experienced any significant symptoms related to her thyroid condition. The patient also has hypercholesterolemia, with a recent LDL cholesterol level of 142 mg/dL, which is above the target goal of less than 130 mg/dL. She is aware of the need to manage her cholesterol levels through diet and exercise. Osteoporosis is another chronic condition for which the patient is being monitored. Her last bone density test was conducted in February 2021, and she is scheduled for a follow-up test this month. The patient experiences anxiety disorder, which has been a longstanding issue. She reports feeling lethargic and tired, which may be related to her anxiety and social circumstances. The patient has mild anemia, with a hemoglobin level of 11.9 g/dL and hematocrit of 35.9%, noted in her recent blood work from August 2024. She is advised to follow up on this finding, although it is not currently causing significant symptoms. Renal function has shown a slight decline, with creatinine levels increasing from 0.88 to 1.03 mg/dL. The patient occasionally uses ibuprofen for hip pain, which may contribute to this change. The patient is obese, with a recent weight gain of 6 pounds. She acknowledges limited physical activity, exercising only three days a week, and recognizes the need for increased movement. Peripheral neuropathy is suspected due to intermittent numbness and tingling in her toes. The patient is concerned about the potential impact on her independence, particularly her ability to drive. Health Maintenance - Bone density screening scheduled for this month - Mammogram is up to date - Colon test with calligraphy in 2019 - Shingles vaccine received Social History - Lives alone and is very independent - Limited physical activity, exercises three days a week - Does not consume alcohol - Experiences feelings of isolation due to lack of family interaction Review of Systems - General: Reports feeling lethargic and tired - Neurological: Reports intermittent numbness and tingling in toes - Musculoskeletal: Reports hip pain requiring occasional ibuprofen use - Psychological: Reports feelings of anxiety and isolation Physical Exam - Neurological: Quick pulses, fine touch assessment performed Results - Labs: Hemoglobin 11.9 g/dL, Hematocrit 35.9%, Creatinine 1.03 mg/dL, LDL cholesterol 142 mg/dL, Hemoglobin A1c 5.7% - Tests: Bone density test last conducted in February 2021 Plan The patient will continue her current thyroid medication, levothyroxine 50 mg daily, as her hypothyroidism is well-managed with this regimen. For hypercholesterolemia, the patient is advised to aim for an LDL cholesterol level of less than 130 mg/dL and to manage her cholesterol through diet and exercise. The patient is reminded to follow up on her bone density screening scheduled for this month to monitor her osteoporosis. She is also advised to maintain her current regimen for anxiety management and to seek support for feelings of isolation. Regarding her mild anemia, the patient is advised to follow up on this finding, although it is not currently causing significant symptoms. For renal function, the patient is cautioned about the use of ibuprofen, as it may contribute to the slight decline in renal function. The patient is encouraged to increase her physical activity to address obesity and improve overall health. She is also advised to monitor her peripheral neuropathy symptoms and to seek further evaluation if they worsen. Patient was informed and verbally consented to the use of an ambient scribe for clinic note documentation during this visit. Discussion Notes During the visit, I discussed with the patient the importance of continuing her current thyroid medication and the need to manage her cholesterol levels through lifestyle modifications. We reviewed her recent lab results, noting mild anemia and a slight increase in creatinine levels, and I advised her on the potential impact of ibuprofen on renal function. I emphasized the importance of her upcoming bone density screening and encouraged her to increase physical activity to address her weight gain. We also discussed her feelings of isolation and anxiety, and I recommended seeking support from friends and family. Patient Instructions - Continue taking levothyroxine 50 mg daily for thyroid management. - Aim for an LDL cholesterol level of less than 130 mg/dL through diet and exercise. - Follow up on bone density screening scheduled for this month. - Monitor symptoms of peripheral neuropathy and seek evaluation if they worsen. - Increase physical activity to address weight gain and improve health. - Be cautious with ibuprofen use due to its potential impact on kidney function. - Seek support from friends and family to address feelings of isolation and anxiety.
--- OUTSIDE RECORDS SUMMARY | 2024-09-24 13:00 | XMS_ITS | Patient Health Record ---
Author Organization [facility] Address [address] [place] [address] Care Team Providers Care Surveying Or Spatial Science Technician Name Role Phone Arely Ivory MD Primary [...] Problem Status W/U Status Risk Notes Problem [id number] Rectal bleeding (K62.5) Active confirmed Problem [id number] Abnormal CT scan, kidney (R93.429) Active confirmed Plan Of Treatment Future Test Test Name Order Date COLONOSCOPY 04/16/2011 COLONOSCOPY 06/14/2018 Insurance Providers Payer Name Payer Address Payer Phone Subscriber Number Group Number Insured Name Patient Relationship to Insured Coverage Start Date Coverage End Date [facility] [address] [place], [place] [id number] [phone] [id number] ABDIAZIZ MYRICK Self - patient is the insured Medical (General) History Medical History History ICD Code lichen planus elevated cholesterol Denies CO,DM,CVA,Lung disease,renal dise ase Surgical History Surgery Date(Month/Year) trigger finger repair thyroid removed left side 04/2018
[2024-09-24 13:01] VITALS: BP 120/66; PULSE 68; TEMP 36.2; O2SAT 97; BMI 31.7
== END 2024-09-24 13:33 | disposition home or self-care (01) ==
LOC: HO.HMCH 12:57
PROVIDERS: PCP Internal Medicine; Visit Provider Internal Medicine
DX: E89.0 Postprocedural hypothyroidism (principal); E78.00 Pure hypercholesterolemia, unspecified; Z68.31 Body mass index [BMI] 31.0-31.9, adult; E66.9 Obesity, unspecified; M81.0 Age-related osteoporosis without current pathological fracture; F41.1 Generalized anxiety disorder

== ENCOUNTER → 2024-09-24 12:56 | Outpatient (BNVA) | payer MEDICARE, SELFPAY | PROVIDERS: PCP Internal Medicine; Visit Provider Internal Medicine | DX: E89.0 Postprocedural hypothyroidism (principal); E78.00 Pure hypercholesterolemia, unspecified; M81.0 Age-related osteoporosis without current pathological fracture; E66.9 Obesity, unspecified; F41.1 Generalized anxiety disorder; F41.9 Anxiety disorder, unspecified; D64.9 Anemia, unspecified; Z68.31 Body mass index [BMI] 31.0-31.9, adult | CPT/HCPCS: 99212 ==

== ENCOUNTER 2024-10-17 09:18 | Outpatient (AMB) | payer MEDICARE, SELFPAY ==
[2024-10-17 09:22] VITALS: BP 120/76; PULSE 85; TEMP 36.6; O2SAT 96; BMI 32.4
--- NOTE | 2024-10-17 09:22 | AM.OFFWIN_ITS ---
Intake Vital Signs 10/17/24 09:22 Height 5 ft 5 in Weight 195 lb BMI 32.4 BP 120/76 Blood Pressure Location Lt brachial Position Sitting Pulse 85 Pulse Source Pulse Oximeter Temp 97.9 F Temp Source Oral Pulse Oximetry (%) 96 Oxygen Delivery Method Room Air Intake Visit Reasons: ep pain on right breast and wrist from fall Intake Note: pt presents with bilateral shoulders and right chest after a fall 4 days ago Patient Tobacco Use Status: Former Tobacco user Allergies No Known Allergies (No Known Allergies*) Allergy (Verified 10/17/24 09:23) Do you need a note to return to daycare/school/sports/work: Yes HPI HPI Comments History of Present Illness Details History of Present Illness - The patient is an 83-year-old female p resenting with musculoskeletal pain following a fall. - The fall occurred at her nephew's hous e in [place], an old log cabin with uneven fredrick. - She experienced a sudden step down, le ading to the fall. - Post-fall, she reports soreness in the shoulders and a significant pain behind the right breast and chest pain. - No recollection of hitting her head or requiring assistance to get up, though family members were present. - She denies dizziness, weakness, or marc st pain post-fall, but notes arm tremors when pressing. - Concerns about potential rib fracture due to persistent pain, though no neck or back pain reported. - No use of blood thinners, and no signi ficant bruising observed on the chest wall. - Pain peaks around day four or five pos t-incident, with current management using Tylenol, though liver concerns limit its use. - She denies LOC, CARVALHO, neck pain, syncope , abd pain, CP, or SOB. Physical Exam General: Cooperative, healthy appearing, comfortable, no acute distress and well developed Orientation: Patient oriented x3 Limitations: No limitations Neck: Normal visual inspection, full ROM of the neck. No midline spinous tenderness noted. Respiratory: Normal respiratory effort and able to speak in complete sentences. TTP of right anterior chest wall. Skin: No rashes or lesions noted. No abrasions. Ecchymosis noted on the lower anterior legs. Neuro: Patient oriented x3, CN 2-12 intact, gait normal Back/spine: no TTP cervical, thoracic or lumbar spine. Flexion and extension intact. Extremities: No edema noted. Patient was informed and verbally consented to the use of an ambient scribe for clinic note documentation during this visit. [facility] Medical History Hypercholesterolemia Insomnia Irritable bowel syndrome Mitral valve prolapse Non-toxic multinodular goiter Obesity (BMI 30-39.9) Osteoporosis Post-surgical hypothyroidism Right hand fracture Right renal mass Surgical History History of excision of mass History of hand surgery History of trigger finger History of kidney surgery S/P thyroid surgery Hx of cataract removal with insertion of prosthetic lens Family History Father Prostate cancer Colon cancer Mother Oral cancer Smoker Sister Ovarian cancer Brother Prostate cancer Brother Prostate cancer Social History Housing: House Alcohol intake: never Patient Tobacco Use Status: Former Tobacco user Tobacco use type: Cigarette Years Smoked: stopped 25 years old e-Cigarette/Vaping Use: Never Used Second Hand Smoke Exposure: Yes service: No Current occupational status: retired Cognitive needs: No Hearing needs: No Vision needs: Yes Review of Systems Const All systems reviewed & are unremarkable except as noted in HPI and below Physical Exam Vital Signs: Last Vital Signs Temp 97.9 F 10/17/24 09:22 Pulse 85 10/17/24 09:22 BP 120/76 10/17/24 09:22 Pulse Ox 96 10/17/24 09:22 Oxygen Delivery Method Room Air 10/17/24 09:22 BMI result Body Mass Index 32.4 Results Reviewed Results Reviewed: will review CXR in the office Assessment & Plan Assessment & Plan (1) Fall: Code(s): W19.XXXA - Unspecified fall, initial encounter Qualifiers: Encounter type: initial encounter Qualified Code(s): W19.XXXA - Unspecified fall, initial encounter (2) Chest wall pain: Code(s): R07.89 - Other chest pain Plan Most likely contusion vs strain vs MSK pain plan - Plan includes obtaining a chest x-ray to rule out fractures. - Pain management with Aleve (naproxen) suggested due to liver concerns with Tylenol. - Follow-up call to confirm x-ray results and ensure no fractures. - Patient advised on pain management and follow-up for x-ray results. Orders: Orders XR chest 2V Today R05.9 - Cough, unspecified Medications: New naproxen 500 mg PO Q12H PRN 20 tabs 0RF pain 7 days Coding Level of Care Code Est Pt Level 4 (93611) Diagnoses Fall, initial encounter W19.XXXA Encounter type: initial encounter Chest wall pain R07.89
--- OUTSIDE RECORDS SUMMARY | 2024-10-17 10:02 | XMS_ITS | Patient Health Record ---
Author Organization [facility] Address [address] [place] [address] Care Team Providers Care Car Detailer Name Role Phone Arely Ivory MD Primary [...] Problem Status W/U Status Risk Notes Problem [id number] Rectal bleeding (K62.5) Active confirmed Problem [id number] Abnormal CT scan, kidney (R93.429) Active confirmed Plan Of Treatment Future Test Test Name Order Date COLONOSCOPY 04/16/2011 COLONOSCOPY 06/14/2018 Insurance Providers Payer Name Payer Address Payer Phone Subscriber Number Group Number Insured Name Patient Relationship to Insured Coverage Start Date Coverage End Date [facility] [address] [place], [place] [id number] ABDIAZIZ MYRICK Self - patient is the insured Medical (General) History Medical History History ICD Code lichen planus elevated cholesterol Denies AL,DM,CVA,Lung disease,renal dise ase Surgical History Surgery Date(Month/Year) trigger finger repair thyroid removed left side 04/2018
== END 2024-10-17 10:40 | disposition home or self-care (01) ==
PROVIDERS: PCP Internal Medicine; Visit Provider Physician Assistant Medical
DX: R07.89 Other chest pain (principal); W19.XXXA Unspecified fall, initial encounter

== ENCOUNTER 2024-10-17 09:18 | Outpatient (REF) | payer MEDICARE, SELFPAY ==
--- NOTE | ~2024-10-17 | XR_ITS ---
EXAMINATION: XR CHEST CLINICAL INFORMATION: R05.9 - Cough, unspecified COMPARISON: 12/15/2022 TECHNIQUE: 2 views of the chest were obtained. FINDINGS: Mildly coarse pulmonary markings are noted. Lungs are clear. Lungs well expanded. Heart size is within normal limits. There is no pleural effusion. XR/XR chest 2V IMPRESSION: Mildly coarse chronic lung markings. Electronically signed by: Chad Pretty MD 10/17/2024 10:19 AM EDT
== END 2024-10-17 09:19 | disposition home or self-care (01) ==
LOC: HO.HMGCX 09:18
PROVIDERS: PCP Internal Medicine; Visit Provider Physician Assistant Medical
DX: R07.89 Other chest pain (principal); R05.9 Cough, unspecified; W19.XXXA Unspecified fall, initial encounter
CPT/HCPCS: 71046; 99212

== ENCOUNTER → 2024-10-17 10:10 | Outpatient (BNV) | payer MEDICARE, SELFPAY | PROVIDERS: PCP Internal Medicine; Visit Provider Radiology Diagnostic Radiology | DX: R05.9 Cough, unspecified (principal) | CPT/HCPCS: 71046 ==

== ENCOUNTER 2024-11-27 14:25 | Outpatient (REF) | payer MEDICARE, SELFPAY ==
--- NOTE | ~2024-11-27 | MM_ITS ---
EXAMINATION: DXA BONE DENSITY AXIAL HISTORY: M81.0 - Age-related osteoporosis without current pathological fracture TECHNIQUE: Givey Dual energy absorptiometry (DEXA) of the lumbar spine, total left hip, and femoral neck was performed. COMPARISON: Comparison is made with the prior examination dated 03/19/2021. FINDINGS: The bone mineral density of the lumbar spine is 0.999 g/cm2, corresponding to a T-score of -1.4, and a Z-score of -0.2. This is indicative of osteopenia. This represents a BMD change of 7.3% compared to the prior exam. This is statistically significant. The bone mineral density of the left total hip is 0.837 g/cm2, corresponding to a T-score of -1.4, and a Z-score of 0.2. This is indicative of osteopenia. This represents a BMD change of -0.5% compared to the prior exam. This is not statistically significant. The bone mineral density of the left femoral neck is 0.744 g/cm2, corresponding to a T-score of -2.1, and a Z-score of -0.3. This is indicative of osteopenia. This represents a BMD change of -4.7% compared to the prior exam. FRACTURE RISK: The FRAX index suggests a ten year probability of major osteoporotic fracture of 22.5%, and of hip fracture 6.5%. MM/XR DEXA axial skeleton IMPRESSION: Based on bone mineral density, and according to World Health Organization (WHO) criteria, the diagnosis is consistent with osteopenia. Statistically, 68% of repeat scans fall within 1 SD (+/- 0.010 g/cm2 for AP spine L1-L4) and 1 SD (+/- 0.012 g/cm2 for femur total) FRAX is a trademark of the [employer]'s [employer], a World Health Organization (WHO) Collaborating Center. Electronically signed by: Lambert Ordonez MD 11/27/2024 03:51 PM EDT
--- OUTSIDE RECORDS SUMMARY | 2024-11-27 17:20 | XMS_ITS | Patient Health Record ---
Author Organization [facility] Address [address] [place] [address] Care Team Providers Care Box Toe Stitcher Name Role Phone Arely Ivory MD Primary Care Provider Collins Grover Jr Unavailable Reason For Referral No Information Medications Medication SIG (Take, Route, Frequency, Duration) Notes Start Date End Date Status Calcium 500 MG 1 tablet Orally Once a day Active Colyte with Flavor Packs 240 GM As directed Orally Over the specified time.; Duration: 1 day(s) 06/14/2018 Active Vitamin D3 2000 UNIT 1 capsule Orally On ce a day Active Vitamin C 500 MG as directed Orally O nce a day Active Immunizations Vaccine Route Administration Date Status Comme nts Influenza Unknown 06/14/2018 Refused Problems Problem Type SNOMED Code ICD Code Onset Dates Problem Status W/U Status Risk Notes Problem Rectal bleeding (54803656) Rectal bleeding (K62.5) Active confirmed Problem Radiology result abnormal (273372235) Abnormal CT scan, kidney (R93.429) Active confirmed Plan Of Treatment Future Test Test Name Order Date COLONOSCOPY 04/16/2011 COLONOSCOPY 06/14/2018 Insurance Providers Payer Name Payer Address Payer Phone Subscriber Number Group Number Insured Name Patient Relationship to Insured Coverage Start Date Coverage End Date [facility] [address] [place], [place] [id number] ABDIAZIZ MYRICK Self - patient is the insured Medical (General) History Medical History History ICD Code lichen planus elevated cholesterol Denies AL,DM,CVA,Lung disease,renal dise ase Surgical History Surgery Date(Month/Year) trigger finger repair thyroid removed left side 04/2018
== END 2024-11-27 14:26 | disposition home or self-care (01) ==
LOC: HO.MAMMO 14:25
PROVIDERS: PCP Internal Medicine; Visit Provider Internal Medicine
DX: M81.0 Age-related osteoporosis without current pathological fracture (principal)
CPT/HCPCS: 77080

== ENCOUNTER → 2024-11-27 14:30 | Outpatient (BNV) | payer MEDICARE, SELFPAY | PROVIDERS: PCP Internal Medicine; Visit Provider Radiology Diagnostic Radiology | DX: E28.39 Other primary ovarian failure (principal) | CPT/HCPCS: 77080 ==